=== PATIENT | female | born 1990 | race Caucasian/White ===

== ENCOUNTER 2020-12-17 08:36 | Emergency (ER) | payer MEDICAID, SELFPAY ==
[2020-12-17 08:51] VITALS: BP 119/87; PULSE 107; RESP 16; TEMP 36.8; O2SAT 96; BMI 32.3
[2020-12-17 09:00] VITALS: BP 129/90; PULSE 84; RESP 16
[2020-12-17 09:14] LABS: Microscopic, Urine URINE MICROSCOPIC (MICROSCOPIC)
[2020-12-17 09:19] LABS: Appearance,Urine CLOUDY (Clear); Blood, Urine 3+ (Negative); Color,Urine ORANGE (Yellow); Glucose,Urine (UA) 1+ (Negative); Ketones,Urine TRACE (Negative); Leukocyte Esterase,Urine 2+ (Negative); Nitrate,Urine POSITIVE (Negative); Protein,Urine 3+ (Negative); Specific Gravity, Urine >= 1.030 (1.005-1.030); Urine Pregnancy, HCG Qual. Negative (Negative); Urobilinogen,Urine >=8.0 EU/dl (0.2)
[2020-12-17 09:30] LABS: Bilirubin,Urine 2+ (Negative)
[2020-12-17 09:34] LABS: Bacteria,Urine 3+ /lpf
--- NOTE | 2020-12-17 09:58 | HMH.EDUROGF ---
ED Disposition Clinical Impression: Urinary tract infection Qualifiers: Urinary tract infection type: site unspecified Hematuria presence: without hematuria Qualified Code(s): N39.0 - Urinary tract infection, site not specified Vaginitis Qualifiers: Chronicity: acute Qualified Code(s): N76.0 - Acute vaginitis Disposition: Home, Self-Care Condition on Discharge: Good Instructions: DI for Urinary Tract Infection (UTI) Additional Instructions: use meds and see pcp for follow up Prescriptions: Fluconazole [Diflucan 150mg tab] 150 mg PO DAILY #5 tab Transmission Status: Pending to [employer] # levoFLOXacin [Levaquin 500mg tab] 500 mg PO DAILY #7 tab Transmission Status: Pending to [employer] # metroNIDAZOLE [metroNIDAZOLE 500mg Tablet] 500 mg PO TID #30 tab Transmission Status: Pending to [employer] # Phenazopyridine HCl [Pyridium 200mg Tablet] 200 pow PO TID #6 tab Transmission Status: Pending to [employer] # Referrals: Provider,Referral, [Primary Care Provider] - - Critical Care Critical Care Time: No Attestation: On 12/17/20, the high probability of a clinically significant, sudden or life threatening deterioration of the following system(s) required my full and direct attention, intervention and personal management. The time I documented below is in addition to time spent performing reported procedures but includes the following listed in this critical care notation. Medical Decision Making - Medical Records Medical records reviewed: Yes: I reviewed the patient's medical records. - Wm Inquiry Pt receiving controlled substance: No Vital Signs: 12/17/20 08:51 12/17/20 09:00 Temperature 98.2 F Temperature Source Oral Pulse Rate 84 Pulse Rate [Left Radial] 107 H Respiratory Rate 16 16 Blood Pressure 129/90 Blood Pressure [Right Arm] 119/87 Blood Pressure Mean 101 Blood Pressure Mean [Right Arm] 97 Blood Pressure Source [Right Arm] Automatic Cuff Blood Pressure Position [Right Arm] Sitting 02 Sat by Pulse Oximetry 96 Oxygen Delivery Method Room Air - Lab Data Lab results reviewed: Yes: I reviewed the patient's lab results. Lab Results 12/17/20 08:45: Urine Color [place], Urine Appearance Cloudy, Urine pH 5.0, Ur Specific [place] >= 1.030, Urine Protein 3+, Urine Glucose (UA) 1+, Urine Ketones Trace, Urine Blood 3+, Urine Nitrate Positive, Urine Bilirubin 2+ A, Urine Urobilinogen >=8.0, Ur Leukocyte Esterase 2+ A, Urine RBC 10-20, Urine WBC 5-10, Ur Squamous Epith Cells None, Urine Bacteria 3+ 12/17/20 08:45: Urine HCG, Qual Negative Orders (Tests/Meds): ORDERS Category Date Time Status Urine Culture Stat Micro 12/17/20 08:45 Received Medical Decision Narrative: pt with prob uti and element of vaginitis - will treat and have pt see pcp/manager gyn Female Urogenital HPI - General Chief complaint: Urogenital-Female Stated complaint: possible uti/yeast inf Time Seen by Provider: 12/17/20 09:59 Mode of Arrival: Ambulatory Source of Information: Patient, Medical Record Limitations: No Limitations Description of Symptoms (Recalled from ER Triage Doc. by RN): Pt to ed per pvt car. Pt states she woke up at 0300 this morning to use the restroom and started having vaginal pain, burning with urination and white discharge. Pt denies back pain or abd pain. Pt states she started taking AZO this morning to try and relieve symptoms with no relief. - History of Present Illness HPI Narrative: has sharp pain in vaginal area with creamy d/c - positive sex active but no known exposure - no fever or other c/o MD Complaint: dysuria, UTI Onset (ago): hour(s) Severity: moderate Urinary Symptoms: dysuria, frequency Sexual activity: yes : Unknown Associated symptoms: vaginal discharge - Related Data Previous Rx's Medication Instructions Recorded Fluconazole [Diflucan 150mg tab] 150
[2020-12-17 10:32] VITALS: BP 129/90; PULSE 107; RESP 18; TEMP 36.8; O2SAT 96
[2020-12-18 22:16] LABS: Neisseria gonorrhoeae, NAA Negative (Negative)
== END 2020-12-17 10:34 | disposition home or self-care (01) ==
PROVIDERS: Emergency Medicine; Emergency Provider Student in an Organized Health Care Education/Training Program
DX: N39.0 Urinary tract infection, site not specified (principal); N76.0 Acute vaginitis
CPT/HCPCS: 81001; 81025; 87086; 87088; 87186; 87491; 87591; 99282

== ENCOUNTER 2021-05-14 14:35 | Emergency (ER) | payer MEDICAID, SELFPAY ==
[2021-05-14 14:36] VITALS: BP 127/75; PULSE 89; RESP 14; TEMP 36.9; O2SAT 100; BMI 34.7
[2021-05-14 15:30] VITALS: BP 127/75; PULSE 89; RESP 14; TEMP 36.9; O2SAT 100; BMI 34.5
--- NOTE | 2021-05-14 15:57 | HMH.EDUTC ---
[facility] [place] Disposition Clinical Impression: Otitis media Qualifiers: Otitis media type: unspecified Laterality: right Qualified Code(s): H66.91 - Otitis media, unspecified, right ear Otitis externa Qualifiers: Otitis externa type: unspecified type Chronicity: unspecified Laterality: right Qualified Code(s): H60.91 - Unspecified otitis externa, right ear Disposition: Home, Self-Care Condition on Discharge: Good Instructions: Middle Ear Infection, DI for Otitis Externa, Otitis Externa, Ofloxacin Otic Additional Instructions: Use ear drops as prescribed Take oral medication as prescribed FOllow up with your Family Doctor if no improvement or any worsening of symptoms Return if needed Straight to ER if any life threatening symptoms Prescriptions: Ofloxacin [Floxin 0.3% OTIC Solution 5mL] 5 drops EAR-RIGHT BID 7 Days #5 ml Transmission Status: Pending to [employer] # Azithromycin [Z-Roe 250mg Tab] 250 mg PO DIRECTED #6 tab Transmission Status: Pending to [employer] # Referrals: Juliet Staley APRN [Primary Care Provider] - As needed Time of Disposition: 16:08 Medical Decision Making - Wm Inquiry Pt receiving controlled substance: No Wm was queried for this patient: No Vital Signs: 05/14/21 14:36 05/14/21 15:30 Temperature 98.5 F 98.5 F Temperature Source Oral Oral Pulse Rate [Left Radial] 89 89 Respiratory Rate 14 14 Blood Pressure [Left Arm] 127/75 127/75 Blood Pressure Mean [Left Arm] 92 92 Blood Pressure Source [Left Arm] Automatic Cuff Blood Pressure Position [Left Arm] Sitting 02 Sat by Pulse Oximetry 100 100 Oxygen Delivery Method Room Air Room Air [facility] [place] HPI - General Stated complaint: rt ear pain Time Seen by Provider: 05/14/21 15:57 Mode of Arrival: Ambulatory Source of Information: Patient Limitations: No Limitations Description of Symptoms (Recalled from Triage Doc. by RN): PATIENT C/O RIGHT EAR PAIN X 1 WEEK HEENT Symptoms (Recalled from RN notes): Yes Resp Symptoms (Recalled from RN notes): No Skin Symptoms (Recalled from RN notes): No MS Symptoms (Recalled from RN notes): No Functional Status (Recalled from RN notes): WNL - History of Present Illness Provider Complaint: Patient states that she started about a week ago with pain in her right ear States that she has tried several OTC medications but nothing has worked State that today her ear hurts and sore to the touch so she came in to get it checked out - Related Data Previous Rx's Medication Instructions Recorded Fluconazole [Diflucan 150mg tab] 150 mg PO DAILY #5 tab 12/17/20 Phenazopyridine HCl [Pyridium 200 pow PO TID #6 tab 12/17/20 200mg Tablet] levoFLOXacin [Levaquin 500mg 500 mg PO DAILY #7 tab 12/17/20 tab] metroNIDAZOLE [metroNIDAZOLE 500mg 500 mg PO TID #30 tab 12/17/20 Tablet] Azithromycin [Z-Roe 250mg Tab] 250 mg PO DIRECTED #6 tab 05/14/21 Ofloxacin [Floxin 0.3% OTIC 5 drops EAR-RIGHT BID 7 Days #5 ml 05/14/21 Solution 5mL] Allergies Allergy/AdvReac Type Severity Reaction Status Date / Time Penicillins Allergy Verified 12/17/20 09:00 - Worker's Comp Is this a Worker's Comp case?: No [facility] History - Hepatitis A Screen Drug use history?: No High risk sexual behaviors?: No History of sexually transmitted infection?: No Currently employed?: No Childcare worker?: No Do you have indoor plumbing?: Yes Do you have electricity?: Yes Attestation statement:: This patient has been screened for Hepatitis A risk factors. I have reviewed the patient's past medical history: Yes - Social History Smoking Status: Never smoker Alcohol Intake: never Occupational Status: other ROS Obtained: Yes All systems reviewed & no additional complaints, Yes Systems reviewed as appropriate & no additional complaints - Constitutional Constitutional: Reports system reviewed and no additional complaints, except as docu, Denies fever(s) - ENT Ears,
[2021-05-14 16:25] VITALS: BP 127/75; PULSE 89; RESP 14; TEMP 36.9; O2SAT 100
== END 2021-05-14 16:31 | disposition home or self-care (01) ==
PROVIDERS: Emergency Provider Nurse Practitioner; PCP Nurse Practitioner Psychiatric/Mental Health
DX: H66.91 Otitis media, unspecified, right ear (principal); H60.91 Unspecified otitis externa, right ear; Z79.51 Long term (current) use of inhaled steroids; Z79.899 Other long term (current) drug therapy; Z88.0 Allergy status to penicillin
CPT/HCPCS: 99213; G0463

== ENCOUNTER 2021-07-07 10:13 | Emergency (ER) | payer MEDICAID, SELFPAY ==
[2021-07-07 10:14] VITALS: BP 122/95; PULSE 98; RESP 18; TEMP 36.9; O2SAT 97; BMI 33.9
[2021-07-07 11:01] VITALS: BP 122/95; PULSE 98; RESP 18; TEMP 36.9; O2SAT 97; BMI 33.7
[2021-07-07 11:20] LABS: Apearance,Urine Cloudy (Clear); Bilirubin,Urine Negative (Negative); Blood, Urine 3+ (Negative); Color,Urine Straw (Yellow); Glucose,Urine (UA) Negative (Negative); Ketones,Urine Negative (Negative); PH,Urine 5.5 (5.0-8.5); Protein,Urine Negative (Negative); Specific Gravity, Urine < 1.005 (1.005-1.030); UTC Leukocyte Esterase,Urine 3+ (Negative); UTC Nitrate,Urine Negative (Negative); Urobilinogen,Urine 0.2 EU/dl (0.2)
--- NOTE | 2021-07-07 11:29 | HMH.EDUTC ---
[facility] [place] Disposition Clinical Impression: UTI (urinary tract infection) Qualifiers: Urinary tract infection type: site unspecified Hematuria presence: with hematuria Qualified Code(s): N39.0 - Urinary tract infection, site not specified Disposition: Home, Self-Care Condition on Discharge: Good Instructions: Urinary Tract Infection, DI for Urinary Tract Infection (UTI) Additional Instructions: Drink plenty of fluids. Take tylenol or ibuprofen for pain or fever. Take the medications as directed. Follow up with your regular doctor. GO TO THE ER FOR ANY WORSENING SYMPTOMS The pyridium will make your urine turn orange, this is an expected side effect. It will stain your clothes if it comes into contact with them. We will culture the urine. That will tell what bacteria is causing your infection and which antibiotics will treat it best. Sometimes the first antibiotic we prescribe turns out to not work against different bacteria. So, make sure you follow up within 3 days if you are not getting better. Prescriptions: Ondansetron [Zofran 4mg ODT] 4 mg PO Q8HP PRN #20 tab PRN Reason: Nausea Transmission Status: Received by [facility] #[id number] Ciprofloxacin HCl [Cipro 500mg Tab] 500 mg PO BID 7 Days #14 tab Transmission Status: Received by [facility] #[id number] Phenazopyridine HCl [Pyridium 200mg Tablet] 200 pow PO TID #6 tab Transmission Status: Received by [facility] #[id number] Referrals: Provider,Referral, MD [Primary Care Provider] - Time of Disposition: 11:50 Medical Decision Making - Medical Records Medical records reviewed: No: I reviewed the patient's medical records. - Wm Inquiry Pt receiving controlled substance: No Vital Signs: 07/07/21 10:14 07/07/21 11:01 07/07/21 11:51 Temperature 98.4 F 98.4 F 98.4 F Temperature Source Oral Oral Oral Pulse Rate 98 H Pulse Rate [Right Radial] 98 H 98 H Respiratory Rate 18 18 18 Blood Pressure 122/95 H Blood Pressure [Right Arm] 122/95 H 122/95 H Blood Pressure Mean [Right Arm] 104 104 Blood Pressure Source [Right Arm] Automatic Cuff Blood Pressure Position [Right Arm] Sitting 02 Sat by Pulse Oximetry 97 97 Oxygen Delivery Method Room Air - Lab Data Lab Results 07/07/21 11:06: C. trachomatis (EDA) Negative, N. gonorrhoeae (EDA) Negative 07/07/21 11:18: Urine Color Straw, Urine Appearance Cloudy, Urine pH 5.5, Ur Specific [place] < 1.005 L, Urine Protein Negative, Urine Glucose (UA) Negative, Urine Ketones Negative, Urine Blood 3+, Urine Nitrate Negative, Urine Bilirubin Negative, Urine Urobilinogen 0.2, Ur Leukocyte Esterase 3+ A [facility] [place] HPI - General Stated complaint: lower pain in female area Time Seen by Provider: 07/07/21 11:29 Mode of Arrival: Ambulatory Source of Information: Patient Limitations: No Limitations Description of Symptoms (Recalled from Triage Doc. by RN): pt c/o lower quad abd pain. pt states she is having burning with urination and incontinence. pt has a hx of kidney stones. HEENT Symptoms (Recalled from RN notes): No Resp Symptoms (Recalled from RN notes): No Skin Symptoms (Recalled from RN notes): No MS Symptoms (Recalled from RN notes): No Functional Status (Recalled from RN notes): wnl - Related Data Previous Rx's Medication Instructions Recorded Fluconazole [Diflucan 150mg tab] 150 mg PO DAILY #5 tab 12/17/20 Phenazopyridine HCl [Pyridium 200 pow PO TID #6 tab 12/17/20 200mg Tablet] levoFLOXacin [Levaquin 500mg 500 mg PO DAILY #7 tab 12/17/20 tab] metroNIDAZOLE [metroNIDAZOLE 500mg 500 mg PO TID #30 tab 12/17/20 Tablet] Azithromycin [Z-Roe 250mg Tab] 250 mg PO DIRECTED #6 tab 05/14/21 Ofloxacin [Floxin 0.3% OTIC 5 drops EAR-RIGHT BID 7 Days #5 ml 05/14/21 Solution 5mL] Ciprofloxacin HCl [Cipro 500mg 500 mg PO BID 7 Days #14 tab 07/07/21 Tab] Ondansetron [Zofran 4mg ODT] 4 mg PO Q8HP PRN #20 tab 07/07/21 Phenazop
[2021-07-07 11:51] VITALS: BP 122/95; PULSE 98; RESP 18; TEMP 36.9
[2021-07-11 08:35] LABS: Neisseria gonorrhoeae, NAA Negative (Negative)
== END 2021-07-07 12:48 | disposition home or self-care (01) ==
PROVIDERS: Emergency Provider Nurse Practitioner Family
DX: N39.0 Urinary tract infection, site not specified (principal); R31.9 Hematuria, unspecified; R32 Unspecified urinary incontinence; Z87.442 Personal history of urinary calculi; Z79.51 Long term (current) use of inhaled steroids; Z88.0 Allergy status to penicillin
CPT/HCPCS: 81003; 87086; 87088; 87186; 87491; 87591; 99213; G0463

== ENCOUNTER 2021-08-26 09:29 | Emergency (ER) | payer MEDICAID, SELFPAY ==
[2021-08-26 09:30] VITALS: BP 125/79; PULSE 91; RESP 19; TEMP 37.1; O2SAT 98; BMI 34.3
[2021-08-26 09:47] LABS: Apearance,Urine Clear (Clear); Bilirubin,Urine Negative (Negative); Blood, Urine 2+ (Negative); Color,Urine Yellow (Yellow); Glucose,Urine (UA) Negative (Negative); Ketones,Urine Negative (Negative); PH,Urine 5.5 (5.0-8.5); Protein,Urine 1+ (Negative); UTC Leukocyte Esterase,Urine Trace (Negative); UTC Nitrate,Urine Negative (Negative); Urobilinogen,Urine 0.2 EU/dl (0.2)
--- NOTE | 2021-08-26 09:54 | HMH.EDUTC ---
[facility] [place] Clinical Impression: Urinary tract infection Qualifiers: Urinary tract infection type: acute cystitis Hematuria presence: with hematuria Qualified Code(s): N30.01 - Acute cystitis with hematuria Disposition: Home, Self-Care Condition on Discharge: Good Instructions: Urinary Tract Infection, DI for Urinary Tract Infection (UTI) Additional Instructions: Increase fluids, water and not soda or tea. Can drink cranberry juice or cranberry extract. White front to back Wear cotton underwear Empty bladder after intercourse Start antibiotics immediately and make sure you take the full course although you may start to see improvement over the next 48 hours. You can eat yogurt or take probiotics to decrease diarrhea or yeast infection caused by the antibiotic Be sure to follow-up anytime for new or worsening symptoms in 48 hours for wound urine culture results be sure to let you PCP no recent urine for culture so they can request records and ensure that you have appropriate antibiotic if you are not getting better or getting worse. If symptoms worsen or do not improve return or be seen in the ER. Follow-up with primary care this week. Prescriptions: Sulfamethoxazole/Trimethoprim [Bactrim DS tablet] 1 each PO BID 10 Days #20 tab Transmission Status: Pending to [facility] #[id number] Referrals: Juliet Staley APRN [Primary Care Provider] - Time of Disposition: 09:59 Medical Decision Making - Wm Inquiry Pt receiving controlled substance: No Vital Signs: 08/26/21 09:30 Temperature 98.7 F Temperature Source Oral Pulse Rate [Right Brachial] 91 H Respiratory Rate 19 Blood Pressure [Right Arm] 125/79 Blood Pressure Mean [Right Arm] 94 Blood Pressure Source [Right Arm] Automatic Cuff Blood Pressure Position [Right Arm] Sitting 02 Sat by Pulse Oximetry 98 Oxygen Delivery Method Room Air - Lab Data Lab Results 08/26/21 09:45: Urine Color Yellow, Urine Appearance Clear, Urine pH 5.5, Ur Specific [place] 1.030, Urine Protein 1+, Urine Glucose (UA) Negative, Urine Ketones Negative, Urine Blood 2+, Urine Nitrate Negative, Urine Bilirubin Negative, Urine Urobilinogen 0.2, Ur Leukocyte Esterase Trace Orders (Tests/Meds): ORDERS Category Date Time Status Urine Culture Stat Micro 08/26/21 09:45 Received [facility] [place] HPI - General Chief complaint: Urgent [facility] Stated complaint: possible uti Time Seen by Provider: 08/26/21 09:55 Mode of Arrival: Ambulatory Source of Information: Patient Limitations: No Limitations Description of Symptoms (Recalled from Triage Doc. by RN): PATIENT C/O URINARY URGENCY THAT STARTED THIS MORNING HEENT Symptoms (Recalled from RN notes): No Resp Symptoms (Recalled from RN notes): No Skin Symptoms (Recalled from RN notes): No MS Symptoms (Recalled from RN notes): No Functional Status (Recalled from RN notes): WNL - History of Present Illness Provider Complaint: 31 yr old female presnets for pain with voiding,pelvic pressure,urgency,freq and burning. - Related Data Home Medications Medication Instructions Recorded Confirmed lamoTRIgine [Lamotrigine] 100 mg PO DAILY 08/26/21 08/26/21 Previous Rx's Medication Instructions Recorded Sulfamethoxazole/Trimethoprim 1 each PO BID 10 Days #20 tab 08/26/21 [Bactrim DS tablet] Allergies Allergy/AdvReac Type Severity Reaction Status Date / Time Penicillins Allergy Verified 12/17/20 09:00 - Worker's Comp Is this a Worker's Comp case?: No [facility] History - Hepatitis A Screen Attestation statement:: This patient has been screened for Hepatitis A risk factors. I have reviewed the patient's past medical history: Yes - Social History Smoking Status: Never smoker Alcohol Intake: never Occupational Status: other ROS Obtained: Yes Systems reviewed as appropriate & no additional complaints - Constitutional Constitutional: Reports system reviewed and no additional complaints, except as
[2021-08-26 10:01] VITALS: BP 125/79; PULSE 91; RESP 19; TEMP 37.1; O2SAT 98
== END 2021-08-26 10:03 | disposition home or self-care (01) ==
PROVIDERS: Emergency Provider Nurse Practitioner Family; PCP Nurse Practitioner Psychiatric/Mental Health
DX: N30.01 Acute cystitis with hematuria (principal); Z79.52 Long term (current) use of systemic steroids; Z79.899 Other long term (current) drug therapy; Z88.0 Allergy status to penicillin; Z91.030 Bee allergy status
CPT/HCPCS: 81003; 87086; 99213; G0463

== ENCOUNTER → 2021-09-09 09:21 | Outpatient (CLI) | payer MEDICAID, SELFPAY ==
--- NOTE | 2021-09-09 09:21 | US_ITS ---
PROCEDURE INFORMATION: Exam: US Right Breast, Complete US Left Breast, Complete Exam date and time: 09/09/2021 9:46 AM Age: 31 years old Clinical indication: Breast pain; Bilateral TECHNIQUE: Imaging protocol: Complete ultrasound of all four quadrants of the Right breast and the retroareolar regions, including ultrasound of the axilla when performed. Complete ultrasound of all four quadrants of the Left breast and the retroareolar regions, including ultrasound of the axilla when performed. COMPARISON: No relevant prior studies available. FINDINGS: Breast: Sonographic images of both breasts including the retroareolar regions, all 4 quadrants and the axilla do not demonstrate any solid or cystic masses. No architectural distortion or acoustical shadowing. No skin thickening or axillary adenopathy. IMPRESSION: No sonographic evidence of malignancy. Annual bilateral mammographic screening is recommended to commence at the age of 40 unless otherwise clinically indicated. ASSESSMENT: BI-RADS Category 1: Negative
== END ==
PROVIDERS: PCP Nurse Practitioner Psychiatric/Mental Health; Visit Provider Obstetrics & Gynecology
DX: N64.4 Mastodynia (principal)
CPT/HCPCS: 76641

== ENCOUNTER 2021-09-18 08:40 | Emergency (ER) | payer MEDICAID, SELFPAY ==
[2021-09-18 08:50] VITALS: BP 102/67; PULSE 84; RESP 19; TEMP 36.9; O2SAT 98; BMI 32.3
--- NOTE | 2021-09-18 09:05 | HMH.EDUTC ---
[facility] Disposition Clinical Impression: Left maxillary sinusitis Left otitis externa Qualifiers: Otitis externa type: swimmer's ear Chronicity: acute Qualified Code(s): H60.332 - Swimmer's ear, left ear Bilateral otitis media Qualifiers: Otitis media type: suppurative Chronicity: acute Recurrence: non-recurrent Spontaneous tympanic membrane rupture: without spontaneous rupture Qualified Code(s): H66.003 - Acute suppurative otitis media without spontaneous rupture of ear drum, bilateral Disposition: Home, Self-Care Condition on Discharge: Good Instructions: DI for Sinusitis Additional Instructions: Take all medications as prescribed until gone Follow up with [facility] next week to recheck Prescriptions: Ciprofloxacin HCl/Dexameth [Cipro 0.3%-Dex 0.1% Otic Susp 7.5mL] 4 % * BID #7.5 ml Transmission Status: Pending to [employer] # Cefdinir [Omnicef 300mg Capsule] 300 mg PO BID #20 cap Transmission Status: Pending to [employer] # predniSONE [Prednisone 20mg Tab] 20 mg PO BID 5 Days #10 tab Transmission Status: Pending to [employer] # Referrals: Juliet Staley APRN [Primary Care Provider] - Time of Disposition: 09:11 Medical Decision Making - Wm Inquiry Pt receiving controlled substance: No [facility] HPI - General Stated complaint: bilateral ear pain Time Seen by Provider: 09/18/21 09:05 - History of Present Illness Provider Complaint: Bilateral ear pain since last night. No fever. Has had congestion X 2-3 days. Face is sore. Left ear is draining, cannot hear out of it. Denies sore throat. No cough. No vomiting or diarrhea. Onset (ago): day(s) (2) Location: face Radiation: non-radiation Severity scale (1-10): 7 Quality: stabbing Consistency: constant Relieving factors: none Exacerbating factors: none Associated symptoms: denies other symptoms Treatments prior to arrival: none - Related Data Home Medications Medication Instructions Recorded Confirmed lamoTRIgine [Lamotrigine] 100 mg PO DAILY 08/26/21 09/02/21 Previous Rx's Medication Instructions Recorded doxycycline hyclate 100 mg tablet 100 mg PO BID #28 tab 09/06/21 levofloxacin 500 mg tablet 500 mg PO DAILY #5 tab 09/06/21 Cefdinir [Omnicef 300mg Capsule] 300 mg PO BID #20 cap 09/18/21 Ciprofloxacin HCl/Dexameth [Cipro 4 % * BID #7.5 ml 09/18/21 0.3%-Dex 0.1% Otic Susp 7.5mL] predniSONE [Prednisone 20mg 20 mg PO BID 5 Days #10 tab 09/18/21 Tab] Allergies Allergy/AdvReac Type Severity Reaction Status Date / Time bee venom protein (honey bee) Allergy Severe Anaphylaxis Verified 09/02/21 14:27 Penicillins Allergy Verified 09/02/21 13:56 [facility] History - Hepatitis A Screen Attestation statement:: This patient has been screened for Hepatitis A risk factors. I have reviewed the patient's past medical history: Yes Medical History: Reports:: Asthma, Seizures Amputation: No Fractures: No - Social History Smoking Status: Never smoker Alcohol Intake: never Alcohol Intake Frequency:: other Occupational Status: other Family Hx:: No significant family history, Other Comment: mother () had seizures ROS Obtained: Yes All systems reviewed & no additional complaints - Constitutional Constitutional: Denies fever(s) - ENT Ears, Nose, Mouth, and Throat: Denies dental pain, Reports otalgia, Reports facial pain, Reports hearing loss, Reports nasal congestion Physical Exam - General General appearance: alert, in no apparent distress - Head Head exam: normocephalic - Eye Eye exam: Present: PERRL - ENT ENT exam: Present: normal oropharynx - Expanded ENT Exam TM/Canal exam: Left TM: canal discharge (cannot visualize TM), canal tenderness, Right TM: erythema Nose exam: Present: sinus tenderness (left maxillary) Throat exam: Present: normal inspection - Neck Neck exam: Present: normal inspection. Absent: lymphadenopathy - Chest Chest inspec
[2021-09-18 09:14] VITALS: BP 102/67; PULSE 84; RESP 19; TEMP 36.9; O2SAT 98
== END 2021-09-18 09:17 | disposition home or self-care (01) ==
PROVIDERS: Emergency Provider Physician Assistant; PCP Nurse Practitioner Psychiatric/Mental Health
DX: J32.0 Chronic maxillary sinusitis (principal); H60.322 Hemorrhagic otitis externa, left ear; H66.003 Acute suppurative otitis media without spontaneous rupture of ear drum, bilateral; H92.03 Otalgia, bilateral; R09.81 Nasal congestion; G50.1 Atypical facial pain; H92.12 Otorrhea, left ear; H91.90 Unspecified hearing loss, unspecified ear; J45.909 Unspecified asthma, uncomplicated; R56.9 Unspecified convulsions
CPT/HCPCS: 99212; G0463

== ENCOUNTER 2021-11-01 09:49 | Emergency (ER) | payer MEDICAID, SELFPAY ==
[2021-11-01 10:20] VITALS: BP 122/83; PULSE 87; RESP 18; TEMP 36.3; O2SAT 95; BMI 31.6
--- NOTE | 2021-11-01 10:38 | HMH.EDUTC ---
[facility] [place] Clinical Impression: Menorrhagia Qualifiers: Menorrhagia type: with irregular cycle Qualified Code(s): N92.1 - Excessive and frequent menstruation with irregular cycle Disposition: Home, Self-Care Condition on Discharge: Good Instructions: DI for Menorrhagia Additional Instructions: Drink plenty of fluids. Take tylenol or ibuprofen for pain or fever. Follow up with shank taper. GO TO THE ER FOR ANY WORSENING SYMPTOMS Prescriptions: Fluconazole [Diflucan 150mg tab] 150 mg PO ONCE #1 tab Transmission Status: Received by [facility] #[id number] Referrals: Juliet Staley APRN [Primary Care Provider] - Danish Booth MD [Staff Physician] - Time of Disposition: 11:02 Medical Decision Making - Medical Records Medical records reviewed: No: I reviewed the patient's medical records. - Wm Inquiry Pt receiving controlled substance: No Vital Signs: 11/01/21 10:20 11/01/21 11:07 Temperature 97.4 F L 97.4 F L Temperature Source Oral Pulse Rate 87 Pulse Rate [Right Brachial] 87 Respiratory Rate 18 18 Blood Pressure 122/83 Blood Pressure [Right Arm] 122/83 Blood Pressure Mean [Right Arm] 96 Blood Pressure Source [Right Arm] Automatic Cuff Blood Pressure Position [Right Arm] Sitting 02 Sat by Pulse Oximetry 95 Oxygen Delivery Method Room Air - Lab Data Lab Results 11/01/21 11:27: [facility] Negative [facility] [place] - General Stated complaint: can't wear tampon/pad, pain Time Seen by Provider: 11/01/21 10:38 - History of Present Illness Provider Complaint: She is here with c/o having a very heavy period for the past 5 days. She is worried about going to work because she is going thru several pad in a day. - Related Data Home Medications Medication Instructions Recorded Confirmed lamoTRIgine [Lamotrigine] 100 mg PO DAILY 08/26/21 09/02/21 Previous Rx's Medication Instructions Recorded doxycycline hyclate 100 mg tablet 100 mg PO BID #28 tab 09/06/21 levofloxacin 500 mg tablet 500 mg PO DAILY #5 tab 09/06/21 Cefdinir [Omnicef 300mg Capsule] 300 mg PO BID #20 cap 09/18/21 Ciprofloxacin HCl/Dexameth [Cipro 4 % * BID #7.5 ml 09/18/21 0.3%-Dex 0.1% Otic Susp 7.5mL] predniSONE [Prednisone 20mg 20 mg PO BID 5 Days #10 tab 09/18/21 Tab] Fluconazole [Diflucan 150mg tab] 150 mg PO ONCE #1 tab 11/01/21 Allergies Allergy/AdvReac Type Severity Reaction Status Date / Time bee venom protein (honey bee) Allergy Severe Anaphylaxis Verified 09/02/21 14:27 Penicillins Allergy Verified 09/02/21 13:56 [facility] History - Hepatitis A Screen Attestation statement:: This patient has been screened for Hepatitis A risk factors. I have reviewed the patient's past medical history: Yes Medical History: Reports:: Asthma, Seizures Amputation: No Fractures: No - Social History Smoking Status: Never smoker Alcohol Intake: never Alcohol Intake Frequency:: other Occupational Status: other Family Hx:: No significant family history, Other Comment: mother () had seizures ROS Obtained: Yes All systems reviewed & no additional complaints - Constitutional Constitutional: Denies chills, Denies fever(s) - Eyes Eyes: Denies eye discharge - ENT Ears, Nose, Mouth, and Throat: Denies sore throat - Cardiovascular Cardiovascular: Denies chest pain - Respiratory Respiratory: Denies chest congestion, Denies cough Physical Exam - General General appearance: alert, in no apparent distress - Head Head exam: atraumatic, normocephalic, normal inspection - Eye Eye exam: Present: normal appearance, PERRL, EOMI - ENT ENT exam: Present: normal exam, normal oropharynx, mucous membranes moist, TM's normal bilaterally, normal external ear exam - Neck Neck exam: Present: normal inspection, full ROM, trachea midline. Absent: meningismus, lymphadenopathy - Chest Chest inspection: Present: normal inspection, symmetric chest
[2021-11-01 11:07] VITALS: BP 122/83; PULSE 87; RESP 18; TEMP 36.3; O2SAT 95
[2021-11-01 11:27] LABS: UTC Pregnancy Test, Urine Negative (Negative)
== END 2021-11-01 11:10 | disposition home or self-care (01) ==
PROVIDERS: Emergency Provider Nurse Practitioner Family; PCP Nurse Practitioner Psychiatric/Mental Health
DX: N92.0 Excessive and frequent menstruation with regular cycle (principal)
CPT/HCPCS: 81025; 99212; G0463

== ENCOUNTER 2022-07-02 12:11 | Emergency (ER) | payer MEDICAID, SELFPAY ==
[2022-07-02 12:20] VITALS: BP 129/86; PULSE 71; RESP 20; TEMP 36.9; O2SAT 98; BMI 29.2
--- NOTE | 2022-07-02 12:34 | EXP.UTC ---
Discharge Plan Disposition Patient Disposition: Home, Self-Care Condition: Good Prescriptions Prescriptions: New fluconazole [Diflucan] 150 mg tablet 150 mg PO ONCE Qty: 1 2RF nystatin 100,000 unit/gram cream 1 applic topical BID 14 Days Qty: 30 0RF Referrals Follow up/Referrals: Provider,Referral, MD [Primary Care Provider] - See instructions Activity Restrictions/Add. Instructions Additional Instructions/Restrictions: Drink plenty of fluids. Take tylenol or ibuprofen for pain or fever. Take the medications as directed. Follow up with your regular doctor. GO TO THE ER FOR ANY WORSENING SYMPTOMS Eat yogurt frequently while you have these symptoms. Clinical Impressions Clinical Impression: Vaginal yeast infection Discharge ED Provider: Sreedhar Washington [facility] General Stated complaint: possible yeast infection Time Seen by Provider: 07/02/22 12:31 History of Present Illness Provider Complaint: She states that for the past 2 days she has had vaginal yeast infection symptoms. Related Data Previous Rx's Medication Instructions Recorded fluconazole 150 mg tablet 150 mg PO ONCE #1 tab 07/02/22 (Diflucan) nystatin 100,000 unit/gram topical 1 applic topical BID 14 days #30 07/02/22 cream grams Allergies Allergy/AdvReac Type Severity Reaction Status Date / Time bee venom protein (honey bee) Allergy Severe Anaphylaxis Verified 07/02/22 12:40 Penicillins Allergy Verified 07/02/22 12:40 [facility] Disclaimer: The information contained in this section may have been updated after the patient was seen, as this information can be updated by other users. Social History Smoking Status: Never smoker alcohol intake: never current occupational status: other Travel in the last 8 weeks: None ROS Obtained: Yes All systems reviewed & no additional complaints except as documented Constitutional Constitutional: Denies chills and Denies fever(s) Eyes Eyes: Denies eye discharge ENT Ears, Nose, Mouth, and Throat: Denies dizziness, Denies otalgia and Denies sore throat Cardiovascular Cardiovascular: Denies chest pain Respiratory Respiratory: Denies shortness of breath, Denies chest congestion, Denies cough, Denies stridor and Denies wheezing Gastrointestinal Gastrointestingal: Denies nausea or vomiting Genitourinary Female Genitourinary: Reports as per HPI Musculoskeletal Musculoskeletal: Reports system reviewed and no additional complaints, except as documented and Denies arthralgias Integumentary/Breasts Skin/Breast: Denies rash Neurologic Neurologic: Denies dizziness and Denies paresthesias Allergic/Immunologic Allergic/Immunologic: Denies wheezing Physical Exam General General appearance: alert and in no apparent distress Head Head exam: atraumatic, normocephalic and normal inspection Eye Eye exam: Present normal appearance, PERRL and EOMI ENT ENT exam: Present normal exam, normal oropharynx, mucous membranes moist, TM's normal bilaterally and normal external ear exam Neck Neck exam: Present normal inspection, full ROM and trachea midline; Absent meningismus or lymphadenopathy Chest Chest inspection: Present normal inspection and symmetric chest wall rise; Absent tenderness Respiratory Respiratory exam: Present normal lung sounds bilaterally; Absent respiratory distress Cardiovascular Cardiovascular exam: Present regular rate and normal rhythm; Absent JVD Abdominal Exam Abdominal exam: Present soft and normal bowel sounds; Absent distention, tenderness or guarding Extremities Exam Extremities exam: Present normal inspection, full ROM and normal capillary refill; Absent calf tenderness Back Exam Back exam: Present normal inspection; Absent tenderness, CVA tenderness (R) or CVA tenderness (L) Neurological Exam Neurological exam: Present alert and oriented X3 Psychiatric Psychiatric exam: Present normal affect and normal m
[2022-07-02 12:46] LABS: Apearance,Urine Clear (Clear); Color,Urine Yellow (Yellow); Glucose,Urine (UA) Negative (Negative); Protein,Urine Trace (Negative); Specific Gravity, Urine 1.025 (1.005-1.030)
[2022-07-02 12:47] LABS: Bilirubin,Urine Negative (Negative); Blood, Urine 1+ (Negative); Ketones,Urine Negative (Negative); UTC Leukocyte Esterase,Urine 1+ (Negative); UTC Nitrate,Urine Negative (Negative); Urobilinogen,Urine 0.2 EU/dl (0.2)
[2022-07-02 13:28] VITALS: BP 129/86; PULSE 71; RESP 20; TEMP 36.9; O2SAT 98
== END 2022-07-02 13:25 | disposition home or self-care (01) ==
PROVIDERS: Emergency Provider Nurse Practitioner Family
DX: B37.31 Acute candidiasis of vulva and vagina (principal)
CPT/HCPCS: 81003; 87086; 99212; 99214; G0463

== ENCOUNTER 2022-08-26 16:50 | Emergency (ER) | payer MEDICAID, SELFPAY ==
--- NOTE | 2022-08-26 17:17 | HMH.EDGENADL ---
Discharge Plan Disposition Patient Disposition: Home, Self-Care Prescriptions Prescriptions: No Action fluconazole [Diflucan] 150 mg tablet 150 mg PO ONCE Qty: 1 2RF nystatin 100,000 unit/gram cream 1 applic topical BID 14 Days Qty: 30 0RF Referrals Follow up/Referrals: Juliet Staley APRN [Primary Care Provider] - See instructions Clinical Impressions Clinical Impression: Avulsed toenail Discharge ED Provider: Keo Talbot General Adult HPI General Chief complaint: PAIN Stated complaint: AO 05/29, right toenail pain Time Seen by Provider: 08/26/22 17:17 History of Present Illness HPI narrative: Patient presents with right great toenail pain. She states that several weeks ago she dropped a deluca on her toe and she has had a toenail that is been growing underneath the injured toenail for some time and today the toenail began to become avulsed and she stated she had some significant pain and wanted to be taken off by professional. No other injuries today. Related Data Previous Rx's Medication Instructions Recorded fluconazole 150 mg tablet 150 mg PO ONCE #1 tab 07/02/22 (Diflucan) nystatin 100,000 unit/gram topical 1 applic topical BID 14 days #30 07/02/22 cream grams Allergies Allergy/AdvReac Type Severity Reaction Status Date / Time bee venom protein (honey bee) Allergy Severe Anaphylaxis Verified 07/02/22 12:40 Penicillins Allergy Verified 07/02/22 12:40 [facility] Disclaimer: The information contained in this section may have been updated after the patient was seen, as this information can be updated by other users. Social History Smoking Status: Current every day smoker alcohol intake: never current occupational status: other Travel in the last 8 weeks: None ROS Obtained: Yes All systems reviewed & no additional complaints except as documented Physical Exam General General appearance: alert Respiratory Respiratory exam: Present normal lung sounds bilaterally; Absent respiratory distress Cardiovascular Cardiovascular exam: Present regular rate; Absent tachycardia Extremities Exam Extremities exam: Present other (Right great toe toenail slightly avulsed attached on the lateral aspect with a healthy toenail growing underneath) Neurological Exam Neurological exam: Present alert and oriented X3 Medical Decision Making Wm Inquiry Pt receiving controlled substance: No Vital Signs: 08/26/22 17:18 08/26/22 17:30 Temperature 98.4 F Temperature Source Oral Pulse Rate 85 Pulse Rate [Right] 85 Respiratory Rate 16 18 Blood Pressure 107/70 L Blood Pressure [Right Arm] 112/75 Blood Pressure Mean 84 Blood Pressure Mean [Right Arm] 87 02 Sat by Pulse Oximetry 99 98 Oxygen Delivery Method Room Air Medical Decision Narrative: See procedure note. Evulsed toenail was removed follow-up precautions and return precautions discussed. Procedures Miscellaneous Procedure Procedure Performed: Digital block of her great toe done with 1% lidocaine with 5 cc good block was obtained and patient was able to have the diseased portion of the avulsed toenail removed and I had to cut off the more lateral aspect that was still intact. Patient tolerated this well was discharged in stable condition Critical Care Time Critical Care Time Critical Care Time: No Attestation: On 08/26/22, the high probability of a clinically significant, sudden or life threatening deterioration of the following system(s) required my full and direct attention, intervention and personal management. The time I documented below is in addition to time spent performing reported procedures but includes the following listed in this critical care notation.
[2022-08-26 17:18] VITALS: BP 112/75; PULSE 85; RESP 16; TEMP 36.9; O2SAT 99; BMI 27.4
[2022-08-26 17:30] VITALS: BP 107/70; PULSE 85; RESP 18; O2SAT 98
[2022-08-26 17:59] VITALS: BP 107/70; PULSE 94; RESP 16; TEMP 36.7; O2SAT 99
== END 2022-08-26 18:02 | disposition home or self-care (01) ==
PROVIDERS: Emergency Provider Student in an Organized Health Care Education/Training Program; PCP Nurse Practitioner Psychiatric/Mental Health
DX: S91.201A Unspecified open wound of right great toe with damage to nail, initial encounter (principal); W20.0XXA Struck by falling object in cave-in, initial encounter; F17.200 Nicotine dependence, unspecified, uncomplicated
CPT/HCPCS: 11730; 99282; 99283

== ENCOUNTER 2022-10-29 05:18 | Emergency (ER) | payer MEDICAID, SELFPAY ==
[2022-10-29 05:20] VITALS: BP 102/84; PULSE 95; RESP 18; TEMP 36.8; O2SAT 96; BMI 28.2
--- NOTE | 2022-10-29 05:40 | PC.NURSE ---
Dr. Duckworth at [facility]
--- NOTE | 2022-10-29 05:41 | PC.NURSE ---
had RAD page u/s for torsion rule out
[2022-10-29 05:42] LABS: Appearance,Urine TURBID (Clear); Bilirubin,Urine Negative (Negative); Blood, Urine 3+ (Negative); Color,Urine YELLOW (Yellow); Glucose,Urine (UA) Negative (Negative); Ketones,Urine Negative (Negative); Leukocyte Esterase,Urine 2+ (Negative); Nitrate,Urine Negative (Negative); Protein,Urine 2+ (Negative); Specific Gravity, Urine >= 1.030 (1.005-1.030); Urobilinogen,Urine 0.2 EU/dl (0.2)
[2022-10-29 05:43] LABS: Microscopic, Urine URINE MICROSCOPIC (MICROSCOPIC)
--- NOTE | 2022-10-29 05:43 | US_ITS ---
PROCEDURE INFORMATION: Exam: US Duplex Artery or Vein of the Abdominal and/or Reproductive Organs, Limited Exam date and time: 10/29/2022 6:36 AM Age: 32 years old Clinical indication: Pelvic pain; Additional info: R/O torsion TECHNIQUE: Imaging protocol: Real-time duplex ultrasound scan of the arterial or venous flow of the abdomen and/or reproductive organs, with color Doppler flow and spectral waveform analysis with image documentation. Exam focused on the region of clinical interest. Duplex exam was performed to evaluate for vascular conditions. COMPARISON: No relevant prior studies available. FINDINGS: Ovaries: Peak systolic velocity in the left ovary 8 cm/s. Peak systolic velocity in the right ovary 12 cm/s. No evidence of ovarian torsion.. IMPRESSION: No evidence of ovarian torsion.. PROCEDURE INFORMATION: Exam: US Pelvis, Transvaginal Exam date and time: 10/29/2022 6:36 AM Age: 32 years old Clinical indication: Pelvic pain; Additional info: R/O torsion LABS AND CLINICAL REPORTS: Last menstrual period start date: 10/13/2022 TECHNIQUE: Imaging protocol: Real-time transvaginal pelvic ultrasound with image documentation. Transvaginal imaging was used for better evaluation of the endometrium, adnexa, and/or cervix. COMPARISON: No relevant prior studies available. FINDINGS: Uterus: Uterus measures 6.3 cm x 4.1 cm x 3.1 cm. Endometrium 7.5 mm Right ovary/adnexa: Right ovary measures 3.4 cm x 2.1 cm x 1.6 cm. Right ovarian volume is 6.1 mL. . Peak systolic velocity in the right ovary 12 cm/s. Left ovary/adnexa: Left ovary measures 4.1 cm x 2 cm x 1.9 cm. Left ovarian volume is 7.9 mL. Peak systolic velocity in the left ovary 8 cm/s 9 mm follicle left ovary Intraperitoneal space: Free fluid in the posterior cul-de-sac
[2022-10-29 05:45] LABS: Urine Pregnancy, HCG Qual. Negative (Negative)
--- NOTE | 2022-10-29 05:49 | PC.NURSE ---
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 Advised he would try again momentarily.
[2022-10-29 05:51] LABS: Bacteria,Urine 3+ /lpf; WBC,Urine TNTC #/hpf (0-3)
[2022-10-29 06:14] LABS: Basophils # 0.1 K/mm3 (0-0.2); Basophils % 0.6 % (0.1-2.0); Eosinophils # 0.5 K/mm3 (0.0-0.4); Eosinophils % 4.7 % (0.1-12.0); Hemoglobin 14.8 g/dL (12.2-16.2); Lymphocytes # 2.4 K/mm3 (0.7-4.5); Lymphocytes % 25.6 % (10-50); Mean Corpuscular HGB Conc 32.9 g/dL (31.8-35.4); Mean Corpuscular Hemoglobin 27.9 pg (27.0-31.2); Mean Platelet Volume 8.7 fl (7.4-10.4); Monocytes # 0.4 K/mm3 (0.1-1.0); Monocytes % 4.6 % (1.7-9.3); Neutrophils # 6.1 K/mm3 (1.8-7.8); Neutrophils % 64.5 % (37.0-80.0); Platelet Count 282 K/mm3 (142-424); Red Blood Count 5.29 M/mm3 (4.20-5.40); Red Cell Distribution Width 13.6 % (11.5-17.5); White Blood Count 9.4 K/mm3 (4.8-10.8)
--- NOTE | 2022-10-29 06:17 | HMH.EDGENADL ---
Discharge Plan Disposition Patient Disposition: Still a Patient Condition: Good Prescriptions Prescriptions: New cefdinir 300 mg capsule 300 mg PO BID 10 Days Qty: 20 0RF ketorolac 10 mg tablet 10 mg PO Q8H PRN (Reason: pain) Qty: 20 0RF ondansetron 4 mg tablet,disintegrating 4 mg PO Q8H PRN (Reason: nausea and vomiting) 4 Days Qty: 12 0RF No Action lamotrigine 100 mg tablet 100 mg PO BID Patient Comments: TAKE 1 TABLET BY MOUTH IN THE MORNING AND 1 TABLET AT BEDTIME Referrals Follow up/Referrals: Juliet Staley APRN [Primary Care Provider] - See instructions Activity Restrictions/Add. Instructions Additional Instructions/Restrictions: You were evaluated in the emergency department today and diagnosed with a urinary tract infection. 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 Take Toradol at home as needed for pain. Take Zofran as needed for nausea and vomiting. Do not take ibuprofen, Aleve, or other NSAIDs while taking Toradol. In addition to these medications, you may take Tylenol every 4-6 hours as needed for pain. Orally hydrate is much as possible. Follow-up with your primary care provider over the next 3 days for reassessment. Return to the emergency department for any new or worsening symptoms, such as significant worsening in pain, persistent fevers, intractable vomiting, or other concerns. Clinical Impressions Clinical Impression: Pyelonephritis Instructions Patient Instructions: DI for Urinary Tract Infection (UTI) Discharge ED Provider: Alice Gomez General Adult HPI <Tremaine Duckworth MD - Last Filed: 10/29/22 07:05> General Chief complaint: Urogenital-Female Stated complaint: abdominal pain, burning Time Seen by Provider: 10/29/22 05:22 Mode of Arrival: Ambulatory Limitations: No Limitations Description of Symptoms (Recalled from ER Triage Doc. by RN): c/o vaginal pain and dysuria, frequent and urgent urination History of Present Illness HPI narrative: Is a 32-year-old female with no relevant medical history presenting with abdominal and lower pelvic pain. Patient states about 30 minutes prior to arrival, she was at home when she had an acute onset, stabbing, lower abdominal/pelvic pain, which does not radiate. Associated with nausea without vomiting, diaphoresis. She has never had pain like this in the past. Maximal in onset at the beginning of pain, currently remains 10 out of 10, she tried sitting in warm water, cold water, but neither of these helped, so she came to the ER for further evaluation. Patient states that she is also been having dysuria without hematuria, but denies fevers, chills, vomiting, abnormal vaginal discharge or bleeding, neurologic deficits. Last menstrual period was 2 weeks prior to arrival and was normal for her Related Data Home Medications Medication Instructions Recorded Confirmed lamotrigine 100 mg tablet 100 mg PO BID Seizure disorder 10/29/22 10/29/22 Previous Rx's Medication Instructions Recorded cefdinir 300 mg capsule 300 mg PO BID 10 days #20 caps 10/29/22 ketorolac 10 mg tablet 10 mg PO Q8H PRN pain #20 tabs 10/29/22 ondansetron 4 mg disintegrating 4 mg PO Q8H PRN nausea and 10/29/22 tablet vomiting 4 days #12 tabs Allergies Allergy/AdvReac Type Severity Reaction Status Date / Time bee venom protein (honey bee) Allergy Severe Anaphylaxis Verified 07/02/22 12:40 Penicillins Allergy Verified 10/29/22 06:00 red dye Allergy Verified 10/29/22 06:00 PFS <Tremaine Duckworth MD - Last Filed: 10/29/22 07:05> [facility] Disclaimer: The information contained in this section may have been updated after the patient was seen, as this information can be updated by other users. Social History Smoking Status: Never smoker alcohol intake: never current occupational status: other Travel in the last 8 weeks: N
[2022-10-29 06:25] LABS: Chloride 108 mmol/L (98-107); Potassium 5.1 mmoL/L (3.5-5.1); Sodium 137 mmol/L (136-145)
[2022-10-29 06:28] LABS: Alanine Aminotransferase 20 U/L (12-78); Albumin Level 4.2 g/dl (3.5-5.0); Albumin/Globulin Ratio 1.2 (1.1-1.8); Alkaline Phosphatase 50 U/L (38-126); Anion Gap 16.1 mEq/L (5-15); Aspartate Amino Transferase 34 U/L (14-36); Bilirubin,Total 0.6 mg/dl (0.2-1.3); Calcium 9.7 mg/dl (8.4-10.2); Carbon Dioxide 18 mmol/L (22.0-30.0); Globulin 3.6 g/dL (1.3-3.2); Glucose 109 mg/dl (74-100); Lactic Acid 1.4 mmol/L (0.7-2.1); Lipase 77 U/L (23-300); Total Protein,Serum 7.8 g/dl (6.3-8.2)
--- NOTE | 2022-10-29 06:33 | PC.NURSE ---
pt transported to ultrasound
--- NOTE | 2022-10-29 07:10 | PC.NURSE ---
call from lab stating that green top was hemolyzed. this nurse got two green top vials for lab. sent to lab.
[2022-10-29 07:25] VITALS: BP 97/60; PULSE 64; O2SAT 98
[2022-10-29 07:34] LABS: Blood Urea Nitrogen 18 mg/dl (7-17); Creatinine Clearance Estimated 111 mL/min (50-200); Estimated Glomerular Filt Rate 72 ml/min (>60); GFR (African American) 87 ML/MIN (>60)
[2022-10-29 08:35] VITALS: BP 106/75; PULSE 64; RESP 16; TEMP 36.6
== END 2022-10-29 08:49 | disposition still patient (30) ==
PROVIDERS: Emergency Medicine; Emergency Provider Emergency Medicine; PCP Nurse Practitioner Psychiatric/Mental Health
DX: N12 Tubulo-interstitial nephritis, not specified as acute or chronic (principal); R10.2 Pelvic and perineal pain
CPT/HCPCS: 76830; 80053; 81001; 81025; 83605; 83690; 85025; 87086; 87088; 87186; 96361; 96365; 96375; 99285; J0131; J0696

== ENCOUNTER 2022-11-04 15:11 | Emergency (ER) | payer MEDICAID, SELFPAY ==
[2022-11-04 15:13] VITALS: BP 128/75; PULSE 76; RESP 16; TEMP 37.3; O2SAT 97; BMI 28.2
--- NOTE | 2022-11-04 15:35 | HMH.EDGENADL ---
Discharge Plan Disposition Patient Disposition: Home, Self-Care Condition: Good Prescriptions Prescriptions: New fluconazole 150 mg tablet 150 mg PO Q3D Qty: 2 0RF conjugated estrogens 0.625 mg/gram cream 1 applic vaginal DAILY 10 Days Qty: 30 0RF Probiotic 10 billion cell capsule 10,000 mmu cells PO DAILY Qty: 30 0RF No Action lamotrigine 100 mg tablet 100 mg PO BID Patient Comments: TAKE 1 TABLET BY MOUTH IN THE MORNING AND 1 TABLET AT BEDTIME cefdinir 300 mg capsule 300 mg PO BID 10 Days Qty: 20 0RF ketorolac 10 mg tablet 10 mg PO Q8H PRN (Reason: pain) Qty: 20 0RF ondansetron 4 mg tablet,disintegrating 4 mg PO Q8H PRN (Reason: nausea and vomiting) 4 Days Qty: 12 0RF Referrals Follow up/Referrals: Anisa Gonsales DO [Staff Physician] - See instructions Juliet Staley APRN [Primary Care Provider] - See instructions Activity Restrictions/Add. Instructions Additional Instructions/Restrictions: You were evaluated in the emergency department today. Please pick up attendant your prescriptions at the pharmacy and use them as prescribed. I encourage oatmeal baths, sitz bath's, and keep the area clean and dry. Do not use scented soaps or other products vaginally. Avoid intercourse or tampon insertion until your symptoms have resolved. Take your full course of antibiotics that were previously prescribed to you at home. Follow-up outpatient with gynecology. We are providing you with the phone number for director of volunteer services. Please call and schedule an appointment to follow-up with them soon as possible. Return to the emergency department for new or worsening symptoms. Clinical Impressions Clinical Impression: Vaginal yeast infection, Vaginitis Instructions Patient Instructions: DI for Vulvo-vaginal Tears, DI for Vaginal Yeast Infection, DI for Vaginal Itching Discharge ED Provider: Alice Gomez General Adult HPI General Chief complaint: PAIN Stated complaint: vaginal inflammation and redness Time Seen by Provider: 11/04/22 15:24 Mode of Arrival: Ambulatory Source of Information: Patient Limitations: No Limitations Description of Symptoms (Recalled from ER Triage Doc. by RN): Pt reports vaginal pain/irritation and redness that began today, pt also reports white vaginal discharge that began today. Pt reports currently on antibiotics for treatment of UTI (Cefdinir) History of Present Illness HPI narrative: This patient is a 32-year-old female who denies significant past medical history presenting to the emergency department for vaginal itching, vaginal burning, and vaginal redness that started today. She also notes that she has had white vaginal discharge that smells different from her usual discharge. She states that when she goes to pee, she feels like she has a tear that velez when the urine is hitting it. She is currently on cefdinir for treatment of urinary tract infection. On medical record review she was prescribed this on 10/29/2022. Patient denies any other concerns and states that overall she is feeling better with no fevers, nausea, vomiting, or other concerns. Related Data Home Medications Medication Instructions Recorded Confirmed lamotrigine 100 mg tablet 100 mg PO BID Seizure disorder 10/29/22 10/29/22 Previous Rx's Medication Instructions Recorded cefdinir 300 mg capsule 300 mg PO BID 10 days #20 caps 10/29/22 ketorolac 10 mg tablet 10 mg PO Q8H PRN pain #20 tabs 10/29/22 ondansetron 4 mg disintegrating 4 mg PO Q8H PRN nausea and 10/29/22 tablet vomiting 4 days #12 tabs Lactobacillus acidophilus 10 10,000 mmu cells PO DAILY #30 caps 11/04/22 billion cell capsule (Probiotic) conjugated estrogens 0.625 mg/gram 1 applic vaginal DAILY 10 days #30 11/04/22 vaginal cream grams fluconazole 150 mg tablet 150 mg PO Q3D 2 doses #2 tabs 11/04/22 Allergies Allergy/AdvReac Type Severity Reaction Status Date / Time bee venom protein (honey bee) Allergy Severe Anaphyl
[2022-11-04 16:17] VITALS: BP 113/67; PULSE 75; RESP 17; TEMP 36.7; O2SAT 97
== END 2022-11-04 16:18 | disposition home or self-care (01) ==
PROVIDERS: Emergency Provider Emergency Medicine; PCP Nurse Practitioner Psychiatric/Mental Health
DX: N76.0 Acute vaginitis (principal); B37.31 Acute candidiasis of vulva and vagina
CPT/HCPCS: 96372; 99283

== ENCOUNTER 2023-01-04 13:47 | Emergency (ER) | payer MEDICAID, SELFPAY ==
--- NOTE | 2023-01-04 14:09 | HMH.EDGENADL ---
Discharge Plan Disposition Patient Disposition: Home, Self-Care Prescriptions Prescriptions: New hydroxyzine HCl 25 mg tablet 25 mg PO Q8H PRN (Reason: itching) Qty: 30 0RF No Action sumatriptan succinate 50 mg tablet 50 mg PO ONCE lamotrigine 100 mg tablet 100 mg PO BID Patient Comments: TAKE 1 TABLET BY MOUTH IN THE MORNING AND 1 TABLET AT BEDTIME ondansetron 4 mg tablet,disintegrating 4 mg PO Q8H PRN (Reason: nausea and vomiting) 4 Days Qty: 12 0RF conjugated estrogens 0.625 mg/gram cream 1 applic vaginal DAILY 10 Days Qty: 30 0RF Referrals Follow up/Referrals: Juliet Staley APRN [Primary Care Provider] - See instructions Activity Restrictions/Add. Instructions Additional Instructions/Restrictions: Consider using [id number] steroid and antihistamine creams. Please take hydroxyzine as prescribed for itching. Clinical Impressions Clinical Impression: Rash of face Instructions Patient Instructions: DI for Rash Discharge ED Provider: Walter Starr General Adult HPI General Chief complaint: Skin/Abscess/Foreign Body Stated complaint: POISON UMM Time Seen by Provider: 01/04/23 13:56 History of Present Illness HPI narrative: 32-year-old female presents with a rash on the face. Present at the jawline bilaterally, patient reports that she thinks it is poison umm. She also reports that she has other allergies and has had exposure to new detergents recently. She reports it is very itchy. Denies any concern for infectious etiology. She is concerned because it is itchy and it is going to interfere with her hollowing costume. Related Data Home Medications Medication Instructions Recorded Confirmed lamotrigine 100 mg tablet 100 mg PO BID Seizure disorder 10/29/22 12/05/22 sumatriptan succinate 50 mg tablet 50 mg PO ONCE 12/05/22 12/05/22 Previous Rx's Medication Instructions Recorded ondansetron 4 mg disintegrating 4 mg PO Q8H PRN nausea and 10/29/22 tablet vomiting 4 days #12 tabs conjugated estrogens 0.625 mg/gram 1 applic vaginal DAILY 10 days #30 11/04/22 vaginal cream grams hydroxyzine HCl 25 mg tablet 25 mg PO Q8H PRN itching #30 tabs 01/04/23 Allergies Allergy/AdvReac Type Severity Reaction Status Date / Time bee venom protein (honey bee) Allergy Severe Anaphylaxis Verified 12/05/22 13:53 Penicillins Allergy Verified 12/05/22 13:53 red dye Allergy Verified 12/05/22 13:53 [facility] Disclaimer: The information contained in this section may have been updated after the patient was seen, as this information can be updated by other users. Family History Other Asthma Cancer Social History Smoking Status: Unknown if ever smoked alcohol intake: never current occupational status: other Travel in the last 8 weeks: None ROS Obtained: Yes All systems reviewed & no additional complaints except as documented Physical Exam General General appearance: alert and in no apparent distress Head Head exam: atraumatic and normocephalic Eye Eye exam: Present normal appearance, PERRL and EOMI ENT ENT exam: Present normal oropharynx, normal external ear exam and other (Mildly erythematous grouped vesicular rash on the mid jaw line bilaterally. No involvement of the oropharynx.) Neck Neck exam: Present normal inspection and full ROM Chest Chest inspection: Present normal inspection and symmetric chest wall rise; Absent tenderness Respiratory Respiratory exam: Present normal lung sounds bilaterally; Absent respiratory distress Cardiovascular Cardiovascular exam: Present regular rate and normal rhythm Abdominal Exam Abdominal exam: Present soft; Absent distention, tenderness or guarding Extremities Exam Extremities exam: Present normal inspection; Absent edema or joint swelling Back Exam Back exam: Present normal inspection; Absent tender
[2023-01-04 14:12] VITALS: BP 121/69; PULSE 79; RESP 16; TEMP 36.7; O2SAT 100; BMI 26.6
[2023-01-04 14:21] VITALS: BP 120/70; PULSE 80; RESP 18; TEMP 36.6; O2SAT 98
== END 2023-01-04 14:30 | disposition home or self-care (01) ==
PROVIDERS: Emergency Provider Emergency Medicine; PCP Nurse Practitioner Psychiatric/Mental Health
DX: L23.7 Allergic contact dermatitis due to plants, except food (principal); R21 Rash and other nonspecific skin eruption
CPT/HCPCS: 99282

== ENCOUNTER 2023-02-11 01:44 | Emergency (ER) | payer MEDICAID, SELFPAY ==
[2023-02-11 01:46] VITALS: BP 116/77; PULSE 87; RESP 18; TEMP 36.8; O2SAT 98; BMI 26.6
--- NOTE | 2023-02-11 02:13 | HMH.EDGENADL ---
Discharge Plan Disposition Patient Disposition: Home, Self-Care Condition: Good Prescriptions Prescriptions: New metronidazole 500 mg tablet 500 mg PO BID 7 Days Qty: 14 0RF cefdinir 300 mg capsule 300 mg PO BID 5 Days Qty: 10 0RF No Action sumatriptan succinate 50 mg tablet 50 mg PO ONCE hydroxyzine HCl 25 mg tablet 25 mg PO Q8H PRN (Reason: itching) Qty: 30 0RF lamotrigine 100 mg tablet 100 mg PO BID Patient Comments: TAKE 1 TABLET BY MOUTH IN THE MORNING AND 1 TABLET AT BEDTIME ondansetron 4 mg tablet,disintegrating 4 mg PO Q8H PRN (Reason: nausea and vomiting) 4 Days Qty: 12 0RF conjugated estrogens 0.625 mg/gram cream 1 applic vaginal DAILY 10 Days Qty: 30 0RF Referrals Follow up/Referrals: Juliet Staley APRN [Primary Care Provider] - See instructions Clinical Impressions Clinical Impression: Acute bacterial simple cystitis, Vaginal discharge, Screening examination for STI Instructions Patient Instructions: DI for Urinary Tract Infection (UTI) Discharge ED Provider: Karolyn Strickland General Adult HPI General Chief complaint: Urogenital-Female Stated complaint: Pressure with urination,lower back pain Time Seen by Provider: 02/11/23 01:56 Mode of Arrival: Ambulatory Source of Information: Patient Limitations: No Limitations Description of Symptoms (Recalled from ER Triage Doc. by RN): Pt presents with complants of difficulty urinating, lower abdominal pressure, and lower back pain. Hx of UTI. LMP 02/04. Denies N/V/D. History of Present Illness HPI narrative: Ms. Staley is a 33-year-old female with previous medical history of recent pyelonephritis followed by vaginal candidiasis presenting with 24 hours of dysuria. Patient states that she has had some vaginal pain that worsens with urination. She also has noted increased discharge that is yellowish. She states this is different than the discharge she had with vaginal candidiasis so she was concerned she may have a urinary infection or some other vaginal infection. Denies fever, abdominal pain, vomiting, vaginal bleeding, or other concerns. Last menstrual period 02/04. Related Data Home Medications Medication Instructions Recorded Confirmed lamotrigine 100 mg tablet 100 mg PO BID Seizure disorder 10/29/22 12/05/22 sumatriptan succinate 50 mg tablet 50 mg PO ONCE 12/05/22 12/05/22 Previous Rx's Medication Instructions Recorded ondansetron 4 mg disintegrating 4 mg PO Q8H PRN nausea and 10/29/22 tablet vomiting 4 days #12 tabs conjugated estrogens 0.625 mg/gram 1 applic vaginal DAILY 10 days #30 11/04/22 vaginal cream grams hydroxyzine HCl 25 mg tablet 25 mg PO Q8H PRN itching #30 tabs 01/04/23 cefdinir 300 mg capsule 300 mg PO BID 5 days #10 caps 02/11/23 metronidazole 500 mg tablet 500 mg PO BID 7 days #14 tabs 02/11/23 Allergies Allergy/AdvReac Type Severity Reaction Status Date / Time bee venom protein (honey bee) Allergy Severe Anaphylaxis Verified 12/05/22 13:53 Penicillins Allergy Verified 12/05/22 13:53 red dye Allergy Verified 12/05/22 13:53 [facility] Disclaimer: The information contained in this section may have been updated after the patient was seen, as this information can be updated by other users. Family History Other Asthma Cancer Social History Smoking Status: Never smoker alcohol intake: never current occupational status: other Travel in the last 8 weeks: None ROS Obtained: Yes Systems reviewed as appropriate & no additional complaints except as documented Physical Exam General General appearance: alert and in no apparent distress Head Head exam: atraumatic, normocephalic and normal inspection Eye Eye exam: Present normal appearance, PERRL and EOMI ENT ENT exam: Present normal exam, normal oropharynx, mucous membranes justice
[2023-02-11 02:17] LABS: Appearance,Urine TURBID (Clear); Bilirubin,Urine Negative (Negative); Blood, Urine 1+ (Negative); Color,Urine YELLOW (Yellow); Glucose,Urine (UA) Negative (Negative); Ketones,Urine TRACE (Negative); Leukocyte Esterase,Urine 1+ (Negative); Microscopic, Urine URINE MICROSCOPIC (MICROSCOPIC); Nitrate,Urine Negative (Negative); Protein,Urine TRACE (Negative); Specific Gravity, Urine >= 1.030 (1.005-1.030); Urobilinogen,Urine 0.2 EU/dl (0.2)
[2023-02-11 02:24] LABS: Urine Pregnancy, HCG Qual. Negative (Negative)
[2023-02-11 02:28] LABS: WBC,Urine 20-50 #/hpf (0-3)
[2023-02-11 02:29] LABS: Bacteria,Urine 2+ /lpf; Mucus,Urine 1+ /lpf
[2023-02-11 03:11] VITALS: BP 120/78; PULSE 82; RESP 18; TEMP 36.8; O2SAT 98
[2023-02-15 21:45] LABS: Trichomonas Vaginalis, NAA NEGATIVE
[2023-02-15 21:46] LABS: Neisseria gonorrhoeae, NAA NEGATIVE
--- NOTE | 2023-02-17 08:15 | PC.NURSE ---
urine results show entercoccus faecalis, Per MD. Gomez not further action needed due to pt dc with cefdinir and metronidazole
== END 2023-02-11 03:19 | disposition home or self-care (01) ==
PROVIDERS: Emergency Provider Emergency Medicine; PCP Nurse Practitioner Psychiatric/Mental Health
DX: N30.00 Acute cystitis without hematuria (principal); R10.30 Lower abdominal pain, unspecified; M54.50 Low back pain, unspecified; N89.9 Noninflammatory disorder of vagina, unspecified; J45.909 Unspecified asthma, uncomplicated
CPT/HCPCS: 81001; 81025; 87086; 87210; 87491; 87591; 87661; 96372; 99285; J0696

== ENCOUNTER 2023-03-05 06:29 | Emergency (ER) | payer MEDICAID, SELFPAY ==
[2023-03-05 06:34] VITALS: BP 113/77; PULSE 115; O2SAT 93
[2023-03-05 06:38] VITALS: BP 113/77; PULSE 115; RESP 18; TEMP 38.4; O2SAT 100; BMI 25.8
--- NOTE | 2023-03-05 06:41 | PC.NURSE ---
in room talking with patient at this time.
--- NOTE | 2023-03-05 06:50 | HMH.EDGENADL ---
Discharge Plan Disposition Patient Disposition: Still a Patient Chief Complaint: Headache Prescriptions Prescriptions: No Action sumatriptan succinate 50 mg tablet 50 mg PO ONCE lamotrigine 100 mg tablet 100 mg PO BID Patient Comments: TAKE 1 TABLET BY MOUTH IN THE MORNING AND 1 TABLET AT BEDTIME ondansetron 4 mg tablet,disintegrating 4 mg PO Q8H PRN (Reason: nausea and vomiting) 4 Days Qty: 12 0RF conjugated estrogens 0.625 mg/gram cream 1 applic vaginal DAILY 10 Days Qty: 30 0RF Referrals Follow up/Referrals: Juliet Staley APRN [Primary Care Provider] - See instructions Clinical Impressions Clinical Impression: Migraine Qualifiers: Migraine type: other Status migrainosus presence: with status migrainosus Discharge ED Provider: Walter Starr Adult HPI General Chief complaint: Headache Stated complaint: Migraine,fever Time Seen by Provider: 03/05/23 06:35 Mode of Arrival: Ambulatory Source of Information: Patient Limitations: No Limitations Description of Symptoms (Recalled from ER Triage Doc. by RN): 33 year old female with complaints of migraine headache that started at 0545 this morning. Patient states she has a history of seizures and believe she had 2 at this time. States she woke up twitching and eyes rolling back states the seizures was not witnessed by anyone. History of Present Illness HPI narrative: 33-year-old female with reported history of migraines and seizure disorder on lamotrigine presents with headache for the last 2 days. She reports it is 10 out of 10. She reports it is frontal in nature. Worse than normal headache. She woke up this morning and felt like her arms were twitchy and drawing up and her eyes rolled back and she reports that she had 2 seizures this morning. She said that they were characteristic of her normal seizures. She reports that her last seizure was a year ago. She also reports that she was feeling sweaty this morning, upon arrival was noted to be febrile to 101. She denies any chest pain abdominal pain throat pain shortness of breath urinary changes. She reports that she is currently menstruating and could not be . She was treated for UTI during the beginning of the month but reports that it resolved completely. She reports that she takes her seizure medication every day as prescribed. Related Data Home Medications Medication Instructions Recorded Confirmed lamotrigine 100 mg tablet 100 mg PO BID Seizure disorder 10/29/22 03/05/23 sumatriptan succinate 50 mg tablet 50 mg PO ONCE 12/05/22 03/05/23 Previous Rx's Medication Instructions Recorded ondansetron 4 mg disintegrating 4 mg PO Q8H PRN nausea and 10/29/22 tablet vomiting 4 days #12 tabs conjugated estrogens 0.625 mg/gram 1 applic vaginal DAILY 10 days #30 11/04/22 vaginal cream grams Allergies Allergy/AdvReac Type Severity Reaction Status Date / Time bee venom protein (honey bee) Allergy Severe Anaphylaxis Verified 12/05/22 13:53 Penicillins Allergy Verified 12/05/22 13:53 red dye Allergy Verified 12/05/22 13:53 [facility] Disclaimer: The information contained in this section may have been updated after the patient was seen, as this information can be updated by other users. Family History Other Asthma Cancer Social History Smoking Status: Never smoker alcohol intake: never current occupational status: other Travel in the last 8 weeks: None ROS Obtained: Yes All systems reviewed & no additional complaints except as documented Physical Exam General General appearance: alert, in no apparent distress and other (Eyes closed, reports photophobia) Head Head exam: atraumatic and normocephalic Eye Eye exam: Present normal appearance, PERRL and EOMI; Absent conjunctival injection ENT ENT exam: Present normal
[2023-03-05 07:00] VITALS: BP 113/77; PULSE 99; RESP 20; O2SAT 98
[2023-03-05 07:09] LABS: Basophils % 0.6 % (0.1-2.0); Eosinophils # 0.1 K/mm3 (0.0-0.4); Hematocrit 41.2 % (37.0-47.0); Hemoglobin 13.6 g/dL (12.2-16.2); Lymphocytes # 0.5 K/mm3 (0.7-4.5); Lymphocytes % 10.4 % (10-50); Mean Corpuscular HGB Conc 33.1 g/dL (31.8-35.4); Mean Corpuscular Hemoglobin 28.1 pg (27.0-31.2); Mean Corpuscular Volume 84.9 fl (81-99); Mean Platelet Volume 7.4 fl (7.4-10.4); Monocytes # 0.4 K/mm3 (0.1-1.0); Monocytes % 9.2 % (1.7-9.3); Neutrophils # 3.6 K/mm3 (1.8-7.8); Neutrophils % 76.8 % (37.0-80.0); Platelet Count 233 K/mm3 (142-424); Red Blood Count 4.85 M/mm3 (4.20-5.40); Red Cell Distribution Width 13.6 % (11.5-17.5); White Blood Count 4.7 K/mm3 (4.8-10.8)
[2023-03-05 07:19] LABS: HCG Qualitative, Serum Negative (Negative)
[2023-03-05 07:21] LABS: Alanine Aminotransferase 24 U/L (12-78); Albumin Level 4.2 g/dl (3.5-5.0); Albumin/Globulin Ratio 1.3 (1.1-1.8); Alkaline Phosphatase 60 U/L (38-126); Anion Gap 13.5 mEq/L (5-15); Aspartate Amino Transferase 31 U/L (14-36); Bilirubin,Total 0.4 mg/dl (0.2-1.3); Blood Urea Nitrogen 13 mg/dl (7-17); Calcium 8.4 mg/dl (8.4-10.2); Carbon Dioxide 19 mmol/L (22.0-30.0); Chloride 106 mmol/L (98-107); Creatinine Clearance Estimated 104 mL/min (50-200); Estimated Glomerular Filt Rate 72 ml/min (>60); GFR (African American) 87 ML/MIN (>60); Globulin 3.2 g/dL (1.3-3.2); Glucose 97 mg/dl (74-100); Potassium 3.5 mmoL/L (3.5-5.1); Sodium 135 mmol/L (136-145); Total Protein,Serum 7.4 g/dl (6.3-8.2)
[2023-03-05 07:32] LABS: Influenza A, PCR Not Detected (NotDetected); Influenza B, PCR Not Detected (NotDetected)
--- NOTE | 2023-03-05 07:33 | PC.NURSE ---
Pt ambulatory to bathroom. No other needs voiced. Call light within reach.
[2023-03-05 07:36] LABS: Microscopic, Urine URINE MICROSCOPIC (MICROSCOPIC)
[2023-03-05 07:39] LABS: Appearance,Urine SL CLOUDY (Clear); Bilirubin,Urine Negative (Negative); Blood, Urine 1+ (Negative); Color,Urine YELLOW (Yellow); Glucose,Urine (UA) Negative (Negative); Ketones,Urine Negative (Negative); Leukocyte Esterase,Urine Negative (Negative); Nitrate,Urine Negative (Negative); PH,Urine 8.5 (5.0-8.5); Protein,Urine Negative (Negative); Urobilinogen,Urine 0.2 EU/dl (0.2)
[2023-03-05 07:50] LABS: Amorphous Sediment,Urine 3+ /lpf; Bacteria,Urine Trace /lpf; WBC,Urine Occasional #/hpf (0-3)
[2023-03-05 07:53] LABS: Coronavirus 19, PCR Detected (NotDetected)
--- NOTE | 2023-03-05 08:10 | HMH.EDGENADL ---
Discharge Plan Disposition Patient Disposition: Still a Patient Prescriptions Prescriptions: No Action sumatriptan succinate 50 mg tablet 50 mg PO ONCE lamotrigine 100 mg tablet 100 mg PO BID Patient Comments: TAKE 1 TABLET BY MOUTH IN THE MORNING AND 1 TABLET AT BEDTIME ondansetron 4 mg tablet,disintegrating 4 mg PO Q8H PRN (Reason: nausea and vomiting) 4 Days Qty: 12 0RF conjugated estrogens 0.625 mg/gram cream 1 applic vaginal DAILY 10 Days Qty: 30 0RF Referrals Follow up/Referrals: Juliet Staley APRN [Primary Care Provider] - See instructions Activity Restrictions/Add. Instructions Additional Instructions/Restrictions: You may take Tylenol and ibuprofen as needed for your symptoms otherwise follow-up with primary care doctor as needed. Clinical Impressions Clinical Impression: COVID-19 Migraine Qualifiers: Migraine type: other Status migrainosus presence: with status migrainosus Stand Alone Forms Stand Alone Forms: Work/School Release Discharge ED Provider: Walter Starr General Adult HPI <Keo Talbot MD - Last Filed: 03/05/23 08:11> General Chief complaint: Headache Stated complaint: Migraine,fever Time Seen by Provider: 03/05/23 06:35 Mode of Arrival: Ambulatory Source of Information: Patient Limitations: No Limitations Description of Symptoms (Recalled from ER Triage Doc. by RN): 33 year old female with complaints of migraine headache that started at 0545 this morning. Patient states she has a history of seizures and believe she had 2 at this time. States she woke up twitching and eyes rolling back states the seizures was not witnessed by anyone. Related Data Home Medications Medication Instructions Recorded Confirmed lamotrigine 100 mg tablet 100 mg PO BID Seizure disorder 10/29/22 03/05/23 sumatriptan succinate 50 mg tablet 50 mg PO ONCE 12/05/22 03/05/23 Previous Rx's Medication Instructions Recorded ondansetron 4 mg disintegrating 4 mg PO Q8H PRN nausea and 10/29/22 tablet vomiting 4 days #12 tabs conjugated estrogens 0.625 mg/gram 1 applic vaginal DAILY 10 days #30 11/04/22 vaginal cream grams Allergies Allergy/AdvReac Type Severity Reaction Status Date / Time bee venom protein (honey bee) Allergy Severe Anaphylaxis Verified 12/05/22 13:53 Penicillins Allergy Verified 12/05/22 13:53 red dye Allergy Verified 12/05/22 13:53 PF[facility] <Keo Talbot MD - Last Filed: 03/05/23 08:11> PFS Disclaimer: The information contained in this section may have been updated after the patient was seen, as this information can be updated by other users. Family History Other Asthma Cancer Social History Smoking Status: Never smoker alcohol intake: never current occupational status: other Travel in the last 8 weeks: None <Keo Talbot MD - Last Filed: 03/05/23 08:11> ROS Obtained: Yes All systems reviewed & no additional complaints except as documented Physical Exam <Keo Talbot MD - Last Filed: 03/05/23 08:11> General General appearance: alert, in no apparent distress and other (Eyes closed, reports photophobia) Respiratory Respiratory exam: Present normal lung sounds bilaterally Cardiovascular Cardiovascular exam: Present regular rate Neurological Exam Neurological exam: Present alert and oriented X3 Medical Decision Making <Keo Talbot MD - Last Filed: 03/05/23 08:11> Wm Inquiry Pt receiving controlled substance: No Vital Signs: 03/05/23 06:38 03/05/23 06:34 03/05/23 07:00 Temperature 101.1 F H Temperature Source Oral Pulse Rate 115 H 99 H Pulse Rate [Left Radial] 115 H Respiratory Rate 18 20 Blood Pressure 113/77 113/77 Blood Pressure [Right Arm] 113/77 Blood Pressure Mean [Right Arm] 89 02 Sat by Pulse Oximetry 100 93 L 98 Oxygen Delivery Method Room Air
[2023-03-05 08:17] VITALS: BP 100/60; PULSE 93; RESP 17; TEMP 36.7; O2SAT 96
== END 2023-03-05 08:18 | disposition still patient (30) ==
PROVIDERS: Emergency Provider Emergency Medicine; PCP Nurse Practitioner Psychiatric/Mental Health
DX: U07.1 COVID-19 (principal); G43.901 Migraine, unspecified, not intractable, with status migrainosus
CPT/HCPCS: 80053; 81001; 84703; 85025; 87636; 96361; 96374; 96375; 99285

== ENCOUNTER 2023-03-23 11:32 | Outpatient (CLI) | payer MEDICAID, SELFPAY ==
--- NOTE | 2023-03-23 11:32 | US_ITS ---
PROCEDURE: US TRANSVAGINAL CLINICAL INDICATION: irregular menses COMPARISON: No exams were available for comparison FINDINGS: Transvaginal sonographic images of the pelvis were obtained. UTERUS: 6.5 cm x 3.8 cmx 2.7 cm anteverted with a combined endometrial thickness of 8.9mm. There is a 3.4 mm nabothian cyst in the cervix. Within the endometrium on the left side at the fundus there is a cystic structure and within the structure is a small 2.7 mm hyperechoic area. LEFT OVARY: 1.6 cmx1.9 cmx3.0cm with a volume of 4.8ml. There are several small peripheral follicles. There is a small follicle measuring 0.65 cm. RIGHT OVARY: 2.8 cmx 1.9 cmx1.4cm with a volume of 3.7ml. There is a follicle measuring 0.9 cm. Both ovaries are seen and appear normal. Doppler flow to both ovaries are seen. There is no fluid in the cul-de-sac. IMPRESSION: 1. Anteverted uterus normal in shape and size. The endometrium is normal thickness at 8.9 mm.. 2. Adjacent to the endometrium there is a cystic area and within the cystic structure is a hyperechoic nodule measuring 2.7 mm. This is located at the fundus of the uterus adjacent to the endometrium on the left side. Would suggest a quantitative beta hCG. 3. Both ovaries are seen and appear normal there are follicles in each ovary. 4. No fluid in the cul-de-sac. Dictated by: Danish Booth MD 03/23/2023 14:06 Danish Booth MD in OV 03/23/2023 14:06
[2023-03-23 12:04] LABS: Basophils # 0.1 K/mm3 (0-0.2); Eosinophils # 0.2 K/mm3 (0.0-0.4); Eosinophils % 3.3 % (0.1-12.0); Hematocrit 42.5 % (37.0-47.0); Hemoglobin 14.4 g/dL (12.2-16.2); Lymphocytes # 2.7 K/mm3 (0.7-4.5); Lymphocytes % 40.7 % (10-50); Mean Corpuscular HGB Conc 33.9 g/dL (31.8-35.4); Mean Corpuscular Hemoglobin 28.6 pg (27.0-31.2); Mean Corpuscular Volume 84.4 fl (81-99); Mean Platelet Volume 7.8 fl (7.4-10.4); Monocytes # 0.4 K/mm3 (0.1-1.0); Monocytes % 6.4 % (1.7-9.3); Neutrophils # 3.2 K/mm3 (1.8-7.8); Neutrophils % 48.6 % (37.0-80.0); Platelet Count 273 K/mm3 (142-424); Red Blood Count 5.03 M/mm3 (4.20-5.40); White Blood Count 6.7 K/mm3 (4.8-10.8)
[2023-03-23 12:16] LABS: Hemoglobin A1C 5.1 % (4.0-6.0)
[2023-03-23 12:25] LABS: Alanine Aminotransferase 23 U/L (12-78); Alkaline Phosphatase 63 U/L (38-126); Aspartate Amino Transferase 25 U/L (14-36); Bilirubin,Total 0.6 mg/dl (0.2-1.3); Blood Urea Nitrogen 18 mg/dl (7-17); Carbon Dioxide 24 mmol/L (22.0-30.0); Chloride 104 mmol/L (98-107); Estimated Glomerular Filt Rate 63 ml/min (>60); GFR (African American) 77 ML/MIN (>60)
[2023-03-23 12:26] LABS: Albumin Level 4.2 g/dl (3.5-5.0); Albumin/Globulin Ratio 1.4 (1.1-1.8); Calcium 8.8 mg/dl (8.4-10.2); Globulin 3.1 g/dL (1.3-3.2); Glucose 92 mg/dl (74-100); Glucose,Fasting 92 mg/dl (74-100); Potassium 3.9 mmoL/L (3.5-5.1); Total Protein,Serum 7.3 g/dl (6.3-8.2)
[2023-03-23 14:03] LABS: Anion Gap 11.9 mEq/L (5-15); Sodium 136 mmol/L (136-145)
[2023-03-24 08:29] LABS: FSH 6.7 mIU/mL (.)
[2023-03-24 11:14] LABS: Insulin Level Total 11.2 uIU/mL (2.6-24.9)
[2023-03-26 16:38] LABS: Testosterone, Total, LC/MS 25 ng/dL (.)
[2023-03-29 09:44] LABS: Anti Mullerian Hormone (AMH) 0.142
== END 2023-03-23 23:59 ==
LOC: RAD 11:32
PROVIDERS: PCP Nurse Practitioner Psychiatric/Mental Health; Visit Provider Obstetrics & Gynecology
DX: N92.6 Irregular menstruation, unspecified (principal)
CPT/HCPCS: 36415; 76830; 80053; 82397; 82670; 82947; 83001; 83036; 83525; 84403; 84443; 85025

== ENCOUNTER 2023-03-25 12:54 | Outpatient (CLI) | payer MEDICAID, SELFPAY ==
[2023-03-25 13:33] LABS: HCG Qualitative, Serum Negative (Negative)
== END 2023-03-25 23:59 ==
LOC: LAB 12:55
PROVIDERS: PCP Nurse Practitioner Psychiatric/Mental Health; Visit Provider Obstetrics & Gynecology
DX: Z32.00 Encounter for pregnancy test, result unknown (principal)
CPT/HCPCS: 36415; 84703

== ENCOUNTER 2024-01-22 11:55 | Emergency (ER) | payer MEDICAID, SELFPAY ==
[2024-01-22 12:12] VITALS: BP 119/77; PULSE 92; RESP 18; TEMP 36.9; O2SAT 98; BMI 26.6
[2024-01-22 12:31] LABS: UTC Pregnancy Test, Urine Negative (Negative)
--- NOTE | 2024-01-22 12:31 | ED_ITS ---
Discharge Plan Disposition Patient Disposition: Home, Self-Care Condition: Good Prescriptions Prescriptions: No Action sumatriptan succinate 50 mg tablet 50 mg PO ONCE epinephrine 0.3 mg/0.3 mL auto-injector 0.3 ml SQ PRN lamotrigine 100 mg tablet 100 mg PO BID Patient Comments: TAKE 1 TABLET BY MOUTH IN THE MORNING AND 1 TABLET AT BEDTIME Referrals Follow up/Referrals: Juliet Staley APRN [Primary Care Provider] - See instructions Activity Restrictions/Add. Instructions Additional Instructions/Restrictions: Follow up with your Family Doctor Follow up with your OBGYN for further evaluation and testing Return if needed Straight to ER if any life threatening symptoms Clinical Impressions Clinical Impression: test negative Print Language Print Language: Somali Discharge ED Provider: Grace Guzman [facility] General Stated complaint: test Mode of Arrival: Ambulatory Source of Information: Patient Limitations: No Limitations Time Seen by Provider: 01/22/24 12:31 Description of Symptoms (Recalled from Triage Doc. by RN): Reports that she is here for a test. HEENT Symptoms (Recalled from RN notes): No Resp Symptoms (Recalled from RN notes): No Skin Symptoms (Recalled from RN notes): No MS Symptoms (Recalled from RN notes): No Functional Status (Recalled from RN notes): wnl History of Present Illness Provider Complaint: Patient states that she is wanting to get a test States that she has taken a couple test at home and one was positive and one was negative Related Data Home Medications ?Medication ?Instructions ?Recorded ?Confirmed lamotrigine 100 mg tablet 100 mg PO BID Seizure disorder 10/29/22 06/23/23 sumatriptan succinate 50 mg tablet 50 mg PO ONCE 12/05/22 06/23/23 epinephrine 0.3 mg/0.3 mL 0.3 ml SQ PRN 03/20/23 06/23/23 injection, auto-injector Allergies Allergy/AdvReac Type Severity Reaction Status Date / Time bee venom protein (honey bee) Allergy Severe Anaphylaxis Verified 06/23/23 14:43 Penicillins Allergy Verified 06/23/23 14:43 red dye Allergy Verified 06/23/23 14:43 Worker's Comp Is this a Worker's Comp case?: No [facility] Disclaimer: The information contained in this section may have been updated after the ashley ent was seen, as this information can be updated by other users. Medical History Patient desires Irregular periods/menstrual cycles Family History Other Asthma Cancer Social History Smoking Status: Current every day smoker tobacco type: e-cigarettes and smokeless tobacco alcohol intake: never current occupational status: other Travel in the last 8 weeks: None ROS Obtained: Yes All systems reviewed & no additional complaints except as documented and Yes Systems reviewed as appropriate & no additional complaints e xcept as documented Constitutional Constitutional: Reports system reviewed and no additional complaints, except as documented and Reports as per HPI ENT Ears, Nose, Mouth, and Throat: Reports system reviewed and no additional complaints, except as documented and Reports as per HPI Cardiovascular Cardiovascular: Reports system reviewed and no additional complaints, except as documented and Reports as per HPI Respiratory Respiratory: Reports system reviewed and no additional complaints, except as documented and Reports as per HPI Gastrointestinal Gastrointestingal: Reports system reviewed and no additional complaints, except as documented and as per HPI Genitourinary Female Genitourinary: Reports system reviewed and no additional complaints, except as documented, Reports as per HPI and Reports other (period is late) Musculoskeletal Musculoskeletal: Reports system reviewed and no additional complaints, except as documented and Reports as per HPI Physical Exam General General appearance: alert and in no apparent distress ENT ENT exam: Present mucous membranes moist Chest Chest inspection: Present normal inspection and symmetric chest wall rise Respiratory Respiratory exam: Present normal lung sounds bilaterally; Absent respiratory distress or wheezes Cardiovascular Cardiovascular exam: Present regular rate and normal heart sounds; Absent normal rhythm or bradycardia Abdominal Exam Abdominal exam: Present soft and normal bowel sounds; Absent distention or tenderness Neurological Exam Neurological exam: Present alert, oriented X3 and normal gait Medical Decision Making Medical Records Screening: Per USPSTF and CDC recommendations, given the prevalence of disease in our region, it is our hospital?s policy to screen for HIV and viral Hepatitis for all patients aged 18 and over and those with ongoing risk factors. Wm Inquiry Pt receiving controlled substance: No Wm was queried for this patient: No Vital Signs: 01/22/24 12:12 Temperature 98.4 F Temperature Source Oral Pulse Rate [Radial] 92 H Respiratory Rate 18 Blood Pressure [Right Arm] 119/77 Blood Pressure Mean [Right Arm] 91 Blood Pressure Source [Right Arm] Automatic Cuff Blood Pressure Position [Right Arm] Sitting 02 Sat by Pulse Oximetry 98 Oxygen Delivery Method Room Air Lab Data Lab results reviewed: Yes I reviewed the patient's lab results.
[2024-01-22 12:54] VITALS: BP 119/77; PULSE 92; RESP 18; TEMP 36.9; O2SAT 98
== END 2024-01-22 12:54 | disposition home or self-care (01) ==
PROVIDERS: Emergency Provider Nurse Practitioner; PCP Nurse Practitioner Psychiatric/Mental Health
DX: Z32.02 Encounter for pregnancy test, result negative (principal)
CPT/HCPCS: 81025; 99212; G0381

== ENCOUNTER 2024-01-28 09:45 | Emergency (ER) | payer MEDICAID, SELFPAY ==
[2024-01-28] VITALS (10 sets, daily range): BP systolic 106–139; BP diastolic 54–93; PULSE 67–87; RESP 16–18; TEMP 36.7; O2SAT 99–100; BMI 26.6
--- NOTE | 2024-01-28 10:10 | CT_ITS ---
PROCEDURE INFORMATION: Exam: CT Abdomen And Pelvis With Contrast Exam date and time: 01/28/2024 11:48 AM Age: 34 years old Clinical indication: Abdominal pain; Generalized; Additional info: Low abd pain vaginal discharge TECHNIQUE: Imaging protocol: Computed tomography of the abdomen and pelvis with contrast. Radiation optimization: All CT scans at this facility use at least one of these dose optimization techniques: automated exposure control; mA and/or kV adjustment per patient size (includes targeted exams where dose is matched to clinical indication); or iterative reconstruction. Contrast material: ISOVUE; Contrast volume: 75 ml; Contrast route: IV; COMPARISON: No relevant prior studies available. FINDINGS: Liver: The liver is unremarkable. Gallbladder and biliary ducts: Gallbladder unremarkable Pancreas: Pancreas unremarkable Spleen: The spleen is unremarkable. Adrenal glands: Adrenal glands unremarkable. Kidneys and ureters: No hydronephrosis. Stomach and bowel: Apparent wall thickening in the colon may be secondary to incomplete filling versus mild colitis. Clinically correlate. The cecum is located in the pelvis. The appendix is not definitively identified. Appendix: See Stomach and bowel finding. Intraperitoneal space: Trace free fluid in the cul-de-sac Vasculature: Unremarkable. No abdominal aortic aneurysm. Lymph nodes: Unremarkable. No enlarged lymph nodes. Urinary bladder: Unremarkable as visualized. Reproductive: Unremarkable as visualized. Bones/joints: Unremarkable. No acute fracture. Soft tissues: Unremarkable. IMPRESSION: 1. Apparent wall thickening in the colon may be secondary to incomplete filling versus mild colitis. Clinically correlate. 2. The cecum is located in the pelvis. The appendix is not definitively identified.
[2024-01-28] MEDS: ACETAMINOPHEN 1,000MG/100ML VIAL 1000 MG IV (10:16)
[2024-01-28 10:25] LABS: Microscopic, Urine URINE MICROSCOPIC (MICROSCOPIC)
[2024-01-28 10:27] LABS: Basophils # 0.1 K/mm3 (0-0.2); Eosinophils # 0.1 K/mm3 (0.0-0.4); Eosinophils % 1.4 % (0.1-12.0); Hematocrit 45.4 % (37.0-47.0); Hemoglobin 15.3 g/dL (12.2-16.2); Lymphocytes # 1.7 K/mm3 (0.7-4.5); Mean Corpuscular HGB Conc 33.6 g/dL (31.8-35.4); Mean Corpuscular Hemoglobin 29.1 pg (27.0-31.2); Mean Corpuscular Volume 86.4 fl (81-99); Monocytes # 0.4 K/mm3 (0.1-1.0); Monocytes % 4.9 % (1.7-9.3); Neutrophils # 6.1 K/mm3 (1.8-7.8); Neutrophils % 72.7 % (37.0-80.0); Platelet Count 296 K/mm3 (142-424); Red Blood Count 5.25 M/mm3 (4.20-5.40); Red Cell Distribution Width 13.4 % (11.5-17.5); White Blood Count 8.4 K/mm3 (4.8-10.8)
[2024-01-28 10:33] LABS: Albumin Level 4.7 g/dl (3.5-5.0); Chloride 105 mmol/L (98-107); Potassium 3.8 mmoL/L (3.5-5.1); Sodium 139 mmol/L (136-145)
[2024-01-28 10:35] LABS: Alanine Aminotransferase 21 U/L (12-78); Aspartate Amino Transferase 27 U/L (14-36); Blood Urea Nitrogen 15 mg/dl (7-17); Creatinine Clearance Estimated 84 mL/min (50-200); Estimated Glomerular Filt Rate 57 ml/min (>60); GFR (African American) 68 ML/MIN (>60)
[2024-01-28 10:36] LABS: Bilirubin,Urine Negative (Negative); Blood, Urine 3+ (Negative); Glucose,Urine (UA) Negative (Negative); Ketones,Urine Negative (Negative); Leukocyte Esterase,Urine 3+ (Negative); Nitrate,Urine Negative (Negative); Protein,Urine Negative (Negative); Specific Gravity, Urine <= 1.005 (1.005-1.030); Urobilinogen,Urine 0.2 EU/dl (0.2)
[2024-01-28 10:36] LABS: Albumin/Globulin Ratio 1.3 (1.1-1.8); Alkaline Phosphatase 58 U/L (38-126); Anion Gap 14.8 mEq/L (5-15); Bilirubin,Total 0.7 mg/dl (0.2-1.3); Calcium 9.5 mg/dl (8.4-10.2); Carbon Dioxide 23 mmol/L (22.0-30.0); Globulin 3.6 g/dL (1.3-3.2); Glucose 116 mg/dl (74-100); Lipase 67 U/L (23-300); Total Protein,Serum 8.3 g/dl (6.3-8.2)
[2024-01-28 10:40] LABS: Appearance,Urine Slightly Cloudy (Clear); Color,Urine Straw (Yellow)
[2024-01-28 10:42] LABS: HCG Qualitative, Serum Negative (Negative)
--- NOTE | 2024-01-28 11:11 | HMH.EDGENADL ---
Discharge Plan Disposition Patient Disposition: Home, Self-Care Prescriptions Prescriptions: New ondansetron 4 mg tablet,disintegrating 4 mg PO Q8H PRN (Reason: nausea and vomiting) 4 Days Qty: 12 0RF levofloxacin 750 mg tablet 750 mg PO DAILY 6 Days Qty: 6 0RF metronidazole 500 mg tablet 500 mg PO BID 7 Days Qty: 14 0RF ondansetron 4 mg tablet,disintegrating 4 mg PO Q8H PRN (Reason: nausea and vomiting) 4 Days Qty: 12 0RF No Action sumatriptan succinate 50 mg tablet 50 mg PO ONCE epinephrine 0.3 mg/0.3 mL auto-injector 0.3 ml SQ PRN lamotrigine 100 mg tablet 100 mg PO BID Patient Comments: TAKE 1 TABLET BY MOUTH IN THE MORNING AND 1 TABLET AT BEDTIME Referrals Follow up/Referrals: Juliet Staley APRN [Primary Care Provider] - See instructions Activity Restrictions/Add. Instructions Additional Instructions/Restrictions: At this time it was felt you are safe to be discharged home. If new or worsening symptoms please do not hesitate to return the emergency department. Please call and schedule appoint with Kate Reddy as soon as you are able to ensure resolution. Please take your antibiotics and nausea medicine as prescribed. Clinical Impressions Clinical Impression: Cervicitis Print Language Print Language: Welsh Discharge ED Provider: Atif Reddy General Adult HPI General Chief complaint: Urogenital-Female Stated complaint: abdomen pain Time Seen by Provider: 01/28/24 10:00 Mode of Arrival: EMS Source of Information: Patient Limitations: No Limitations Description of Symptoms (Recalled from ER Triage Doc. by RN): lower abdominal pain with discharge History of Present Illness HPI narrative: Patient is a 34-year-old female with chronic vaginal discharge, previous urinary tract infection who presents to the emergency department for evaluation of lower abdominal pain and vaginal discharge. She states that she has vaginal discharge at baseline that varies in color, she is monogamous with 1 sexual partner. Her vaginal discharge has been dark brown recently which is different than normal. She has low pelvic pain and suprapubic abdominal pain. Normal stooling, no high abdominal pain, no other acute complaints at this time Related Data Home Medications ?Medication ?Instructions ?Recorded ?Confirmed lamotrigine 100 mg tablet 100 mg PO BID Seizure disorder 08/19/23 04/12/24 sumatriptan succinate 50 mg tablet 50 mg PO ONCE 12/05/22 06/23/23 epinephrine 0.3 mg/0.3 mL 0.3 ml SQ PRN 03/20/23 06/23/23 injection, auto-injector Previous Rx's ?Medication ?Instructions ?Recorded levofloxacin 750 mg tablet 750 mg PO DAILY Cervicitis 6 days 01/28/24 #6 tabs metronidazole 500 mg tablet 500 mg PO BID cervicitis 7 days 01/28/24 #14 tabs ondansetron 4 mg disintegrating 4 mg PO Q8H PRN nausea and 01/28/24 tablet vomiting 4 days #12 tabs ondansetron 4 mg disintegrating 4 mg PO Q8H PRN nausea and 01/28/24 tablet vomiting 4 days #12 tabs Allergies Allergy/AdvReac Type Severity Reaction Status Date / Time bee venom protein (honey bee) Allergy Severe Anaphylaxis Verified 06/23/23 14:43 Penicillins Allergy Anaphylaxis Verified 01/28/24 11:27 red dye Allergy Anaphylaxis Verified 01/28/24 11:27 [facility] Disclaimer: The information contained in this section may have been updated after the patient was seen, as this information can be updated by other users. Medical History Patient desires Irregular periods/menstrual cycles Family History Other Asthma Cancer Social History Smoking Status: Never smoker alcohol intake: never current occupational status: other Travel in the last 8 weeks: None Other Medical History Have you received the Flu Vaccine for this season: No Have you received the Pneumonia Vaccine: No ROS Obtained: Yes Systems reviewed as appropriate & no additional complaints except as documented Physical Exam General General appearance: alert and in no apparent distress Head Head exam: atraumatic and normocephalic Eye Eye exam: Present PERRL and EOMI ENT ENT exam: Present mucous membranes moist Neck Neck exam: Present normal inspection Chest Chest inspection: Present normal inspection and symmetric chest wall rise Respiratory Respiratory exam: Present normal lung sounds bilaterally; Absent respiratory distress Cardiovascular Cardiovascular exam: Present regular rate and normal rhythm Abdominal Exam Abdominal exam: Present soft and tenderness (Suprapubic); Absent guarding or rebound External exam: Present normal external exam Speculum exam: Present other (Frothy brown-colored vaginal discharge from the cervix with ulcerative lesion over the cervical os) Bimanual exam: Present other ([employer]el Operation [employer] present) Extremities Exam Extremities exam: Present normal inspection Neurological Exam Neurological exam: Present alert Psychiatric Psychiatric exam: Present normal affect Skin Skin exam: Present warm and dry Medical Decision Making Medical Records Screening: Per USPSTF and CDC recommendations, given the prevalence of disease in our region, it is our hospital?s policy to screen for HIV and viral Hepatitis for all patients aged 18 and over and those with ongoing risk factors. Wm Inquiry Pt receiving controlled substance: No Vital Signs: 01/28/24 09:45 01/28/24 09:49 01/28/24 10:15 Temperature 98.1 F Temperature Source Oral Pulse Rate 80 72 Pulse Rate [Right] 86 Respiratory Rate 18 Blood Pressure 132/87 133/69 Blood Pressure [Right Arm] 132/87 Blood Pressure Mean 94 90 Blood Pressure Mean [Right Arm] 102 02 Sat by Pulse Oximetry 100 100 100 Oxygen Delivery Method Room Air Room Air Room Air 01/28/24 10:30 01/28/24 11:00 01/28/24 12:16 Temperature Temperature Source Pulse Rate 69 69 87 Pulse Rate [Right] Respiratory Rate Blood Pressure 129/81 139/93 H 111/65 Blood Pressure [Right Arm] Blood Pressure Mean 99 102 86 Blood Pressure Mean [Right Arm] 02 Sat by Pulse Oximetry 100 100 100 Oxygen Delivery Method Room Air Room Air Room Air 01/28/24 12:31 01/28/24 13:00 Temperature Temperature Source Pulse Rate 86 69 Pulse Rate [Right] Respiratory Rate Blood Pressure 108/54 L 129/77 Blood Pressure [Right Arm] Blood Pressure Mean 72 94 Blood Pressure Mean [Right Arm] 02 Sat by Pulse Oximetry 99 100 Oxygen Delivery Method Room Air Room Air Lab Data Lab Results 01/28/24 10:05: WBC 8.4, RBC 5.25, Hgb 15.3, Hct 45.4, MCV 86.4, MCH 29.1, MCHC 33.6, RDW 13.4, Plt Count 296, MPV 7.0 L, Neut % (Auto) 72.7, Lymph % (Auto) 20.0, Cross % (Auto) 4.9, Eos % (Auto) 1.4, Baso % (Auto) 1.0, Neut # (Auto) 6.1, Lymph # (Auto) 1.7, Cross # (Auto) 0.4, Eos # (Auto) 0.1, Baso # (Auto) 0.1, Sodium 139, Potassium 3.8, Chloride 105, Carbon Dioxide 23, Anion Gap 14.8, BUN 15, Creatinine 1.10 H, Estimated Creat Clear 84, Estimated GFR 57 L, Est GFR ( Amer) 68, Glucose 116 H, Calcium 9.5, Total Bilirubin 0.7, AST 27, ALT 21, Alkaline Phosphatase 58, Total Protein 8.3 H, Albumin 4.7, Globulin 3.6 H, Albumin/Globulin Ratio 1.3, Lipase 67, Serum HCG, Qual Negative, HIV 1&2 Antibody Rapid Nonreactive 01/28/24 10:08: Urine Color Straw, Urine Appearance Slightly cloudy, Urine pH 7.0, Ur Specific [place] <= 1.005, Urine Protein Negative, Urine Glucose (UA) Negative, Urine Ketones Negative, Urine Blood 3+ A, Urine Nitrate Negative, Urine Bilirubin Negative, Urine Urobilinogen 0.2, Ur Leukocyte Esterase 3+ A, Urine RBC 3-5, Urine WBC 20-50, Ur Squamous Epith Cells 5-10, Urine Bacteria 1+ 01/28/24 10:05 01/28/24 10:05 Orders (Tests/Meds): ED MEDICATIONS Generic Name Dose Route Start Last Admin Trade Name Freq PRN Reason Stop Dose Admin Ceftriaxone Sodium 1,000 mg 01/28/24 13:56 Ceftriaxone 500mg Vial IM 01/28/24 13:57 ONCE ONE Levofloxacin 750 mg 01/28/24 13:56 Levofloxacin 750 Mg Tablet PO 01/28/24 13:57 ONCE ONE Lidocaine HCl 0 ml 01/28/24 13:56 Lidocaine 1% 5ml Pf Vial IM 01/28/24 13:57 ONCE ONE Discontinued Medications Generic Name Dose Route Start Last Admin Trade Name Freq PRN Reason Stop Dose Admin Acetaminophen 1,000 mg 01/28/24 10:10 01/28/24 10:16 Acetaminophen 1,000mg/100ml Vial IV 01/28/24 10:11 1,000 mg ONCE ONE Administration Azithromycin 2,000 mg 01/28/24 11:37 01/28/24 13:23 Azithromycin 250mg Tablet PO 01/28/24 11:38 Not Given ONCE ONE Ceftriaxone Sodium 1 gm 01/28/24 11:17 01/28/24 11:55 Ceftriaxone 1gm Vial IM 01/28/24 11:18 Not Given ONCE ONE Ceftriaxone Sodium 500 mg 01/28/24 13:56 Ceftriaxone 500mg Vial IM 01/28/24 13:57 ONCE ONE Diphenhydramine HCl 25 mg 01/28/24 11:32 01/28/24 11:47 Diphenhydramine 50mg/Ml Vial IV 01/28/24 11:33 25 mg ONCE ONE Administration Doxycycline Hyclate 100 mg 01/28/24 11:18 01/28/24 12:07 Doxycycline Hycl 100 Mg Tablet PO 01/28/24 11:19 Not Given ONCE ONE Gentamicin Sulfate 240 mg/ 106 mls @ 106 mls/hr 01/28/24 11:33 01/28/24 12:11 Sodium Chloride IV 01/28/24 11:34 106 mls/hr ONCE ONE Administration Iopamidol 75 ml 01/28/24 11:53 01/28/24 11:56 Iopamidol-370 (76%);100ml Bottle IV 01/28/24 11:54 75 ml ONCE ONE Administration Lidocaine HCl 0 ml 01/28/24 11:17 01/28/24 13:04 Lidocaine 1% 5ml Pf Vial IM 01/28/24 11:18 Not Given ONCE ONE Metronidazole 500 mg 01/28/24 11:17 01/28/24 11:55 Metronidazole 500 Mg Tablet PO 01/28/24 11:18 Not Given ONCE ONE Ondansetron HCl 4 mg 01/28/24 11:17 Ondansetron 4mg/2ml Vial IV 01/28/24 11:18 ONCE ONE Sodium Chloride 10 ml 01/28/24 11:53 01/28/24 11:55 Sodium Chloride 0.9% 10ml Syr (Rad Only) IV 01/28/24 11:54 10 ml ONCE ONE Administration ORDERS Category Date Time Status CT abdomen pelvis w con Stat Cat Scan 01/28/24 10:10 Completed CBC w/Auto Diff [Complete Blood Count Auto Diff] Stat Lab 01/28/24 10:05 Completed CMP [Comprehensive Metabolic Panel] Stat Lab 01/28/24 10:05 Completed HIV (1&2) Antibody Rapid Stat Lab 01/28/24 10:05 Completed Hep C Ab with Reflex to RNA Stat Lab 01/28/24 10:05 Received Lipase Stat Lab 01/28/24 10:05 Completed Serum [HCG Qualitative, Serum] Stat Lab 01/28/24 10:05 Completed Trichomonas Vaginalis, EDA Stat Lab 01/28/24 10:14 Received Urinalysis and Microscopic Stat Lab 01/28/24 10:08 Completed Urine Culture Stat Micro 01/28/24 10:08 Received Medical Decision Narrative: In summary patient is a 34-year-old female past medical history described above presents emergency department for evaluation of lower abdominal pain, vaginal discharge. Patient is hemodynamically stable nontoxic-appearing upon arrival, afebrile. Differential includes urinary tract infection, STI, , TOA, among others. Workup we conducted with hematologic labs, urinalysis, vaginal swabs, CT abdomen pelvis IV contrast. Initial inventions include IV Tylenol. Patient has cervicitis on physical exam given history of multiple allergies acceptable regimen that covers common STIs including gonorrhea, chlamydia, trichomonas with going to conducted with gentamicin and azithromycin and tonight is all however after gentamicin was administered unfortunately there are no azithromycin preparations which do not contain red dye for which she is anaphylactic. The case was discussed with pharmacy at length, patient will be given ceftriaxone intramuscular given that she has tolerated ceftriaxone before per their chart review, will also give levofloxacin and metronidazole. Hematologic labs reviewed by me and are nonactionable, no significant leukocytosis, no JACKIE or critical electrolyte abnormality, urinalysis interpreted by me, significant sterile pyuria which further points to cervicitis. CT abdomen pelvis shows wall thickening of the colon which may represent colitis, the appendix is not definitively identified however there are no secondary findings of appendicitis and patient clinically has cervicitis to explain her findings therefore I have no concern for appendicitis. Patient we discharged with a course of levofloxacin and metronidazole and Zofran was given multiple return precautions. Patient will follow-up with Kate Reddy on an outpatient basis. Critical Care Critical Care Time Critical Care Time: No
--- NOTE | 2024-01-28 11:23 | PC.NURSE ---
PT TO CT
--- NOTE | 2024-01-28 11:24 | PC.NURSE ---
PT REFUSED CT WITH CONTRAST, DR ROSE AT BEDSIDE
[2024-01-28 11:29] LABS: WBC,Urine 20-50 #/hpf (0-3)
[2024-01-28 11:31] LABS: Bacteria,Urine 1+ /lpf
[2024-01-28] MEDS: diphenhydrAMINE 50MG/ML VIAL 25 MG IV (11:47)
[2024-01-28] MEDS: SODIUM CHLORIDE 0.9% 10ML SYR (RAD ONLY) 10 ML IV (11:55)
[2024-01-28] MEDS: IOPAMIDOL-370 (76%);100ML BOTTLE 75 ML IV (11:56)
--- NOTE | 2024-01-28 11:59 | PC.NURSE ---
PT RETURNED FROM CT
--- NOTE | 2024-01-28 12:01 | PC.NURSE ---
PT RETURNED FROM CT SCAN AT THIS TIME.
--- NOTE | 2024-01-28 12:03 | PC.NURSE ---
spoke with Sal Pharmacist. toniazole does not have red dye
[2024-01-28] MEDS: SODIUM CHLORIDE 0.9% IV (12:11)
[2024-01-28] MEDS: GENTAMICIN SULFATE IV (12:11)
[2024-01-28 12:33] LABS: HIV (1&2) Antibody Rapid NONREACTIVE (NONREACTIVE)
[2024-01-28] MEDS: LIDOCAINE 1% 5ML PF VIAL IM (14:11)
[2024-01-28] MEDS: cefTRIAXone 1GM VIAL 1 GM IM (14:11)
[2024-01-28] MEDS: levoFLOXacin 750 MG TABLET PO (14:11)
--- NOTE | 2024-01-29 07:44 | PC.NURSE ---
urine culture discussed with , pt dc with levaquin and marvin, ntd at this time until final report
[2024-01-30 05:29] LABS: HCV Ab Non Reactive (Non Reactive)
--- NOTE | 2024-01-30 08:52 | PC.NURSE ---
pt updated in change of antibiotic for her urine culture, pt ok to have the antibiotic called into [facility]
--- NOTE | 2024-01-30 13:04 | PC.NURSE ---
Called [facility] pharmacy, bactrim ds called in for pt to take for her urine culture results per
[2024-01-30 22:07] LABS: Neisseria gonorrhoeae, NAA Negative (Negative)
[2024-01-31 03:37] LABS: Trichomonas Vaginalis, NAA Negative (Negative)
== END 2024-01-28 14:45 | disposition home or self-care (01) ==
PROVIDERS: Emergency Provider Emergency Medicine; PCP Nurse Practitioner Psychiatric/Mental Health
DX: N72 Inflammatory disease of cervix uteri (principal); R10.30 Lower abdominal pain, unspecified; N89.8 Other specified noninflammatory disorders of vagina
CPT/HCPCS: 74177; 80053; 81001; 83690; 84703; 85025; 86803; 87086; 87088; 87186; 87389; 87491; 87591; 87661; 96372; 96374; 96375; 99285; J0131; J0696; J1200; J1580; Q9967

== ENCOUNTER 2024-08-07 21:35 | Emergency (ER) | payer MEDICAID, SELFPAY ==
[2024-08-07 22:23] VITALS: BP 111/74; PULSE 74; RESP 16; TEMP 36.9; O2SAT 98; BMI 28.1
--- NOTE | 2024-08-07 22:41 | ED_ITS ---
Discharge Plan Disposition Patient Disposition: Home, Self-Care Condition: Good Prescriptions Prescriptions: New sulfamethoxazole-trimethoprim 800-160 mg tablet 1 tab PO BID 7 Days Qty: 14 0RF No Action sumatriptan succinate 50 mg tablet 50 mg PO ONCE epinephrine 0.3 mg/0.3 mL auto-injector 0.3 ml SQ PRN ondansetron 4 mg tablet,disintegrating 4 mg PO Q8H PRN (Reason: nausea and vomiting) 4 Days Qty: 12 0RF levofloxacin 750 mg tablet 750 mg PO DAILY 6 Days Qty: 6 0RF metronidazole 500 mg tablet 500 mg PO BID 7 Days Qty: 14 0RF ondansetron 4 mg tablet,disintegrating 4 mg PO Q8H PRN (Reason: nausea and vomiting) 4 Days Qty: 12 0RF lamotrigine 100 mg tablet 100 mg PO BID Patient Comments: TAKE 1 TABLET BY MOUTH IN THE MORNING AND 1 TABLET AT BEDTIME Referrals Follow up/Referrals: Provider,Referral, MD [Primary Care Provider, Medical] - See instructions Activity Restrictions/Add. Instructions Additional Instructions/Restrictions: Please take antibiotics as prescribed. Please follow up with your PCP. Return to the ER if symptoms are worsening despite antibiotics. Clinical Impressions Clinical Impression: UTI (urinary tract infection) Qualifiers: Urinary tract infection type: acute cystitis Hematuria presence: with hematuria Qualified Code(s): N30.01 - Acute cystitis with hematuria Instructions Patient Instructions: DI for Urinary Tract Infection (UTI), DI for Urinary Tract Infection in Children Print Language Print Language: Croatian Discharge ED Provider: Walter Starr General Adult HPI General Chief complaint: Urogenital-Female Stated complaint: Possible Uti; Kidney Infection; Passing out Time Seen by Provider: 08/07/24 22:41 Mode of Arrival: Wheelchair Source of Information: Patient Description of Symptoms (Recalled from ER Triage Doc. by RN): C/o of burning with urination x 2 days. History of Present Illness HPI narrative: 34-year-old female with history of prior UTI, seizure disorder on lamotrigine presents for urinary symptoms. She reports dysuria, urinary frequency and urgency over the last couple days. She also reports some low back pain and chills. She reports that she has had a kidney infection before and this feels a bit similar. Related Data Home Medications ?Medication ?Instructions ?Recorded ?Confirmed lamotrigine 100 mg tablet 100 mg PO BID Seizure disord er 10/29/22 06/23/23 sumatriptan succinate 50 mg tablet 50 mg PO ONCE 12/0506/23/23 epinephrine 0.3 mg/0.3 mL 0.3 ml SQ PRN 03/20/2306/22 injection, auto-injector Previous Rx's ?Medication ?Instructions ?Recorded levofloxacin 750 mg tablet 750 mg PO DAILY Cervicitis 6 days 01/28/24 #6 tabs metronidazole 500 mg tablet 500 mg PO BID cervicitis 7 days 01/28/24 #14 tabs ondansetron 4 mg disintegrating 4 mg PO Q8H PRN nausea and 01/28/24 tablet vomiting 4 days #12 tabs ondansetron 4 mg disintegrating 4 mg PO Q8H PRN nausea and 01/28/24 tablet vomiting 4 days #12 tabs sulfamethoxazole 800 1 tab PO BID 7 days #14 tabs 08/07/24 mg-trimethoprim 160 mg tablet Allergies Allergy/AdvReac Type Severity Reaction Status Date / Time bee venom protein (honey bee) Allergy Severe Anaphylaxis Verified 06/23/23 14:43 Penicillins Allergy Anaphylaxis Verified 01/28/24 11:27 red dye Allergy Anaphylaxis Verified 01/28/24 11:27 [facility] Disclaimer: The information contained in this section may have been updated after the patient was seen, as this information can be updated by other users. Medical History Patient desires Irregular periods/menstrual cycles Family History Other Asthma Cancer Social History Smoking Status: Smoker, status unknown tobacco type: e-cigarettes and smokeless tobacco alcohol intake: never current occupational status: other Travel in the last 8 weeks?: None Have you lived/traveled outside [place] in past 30 days?: No Contact w/someone who lives/traveled outside [place] past 30 days?: No Exposure to someone with infectious disease in past 14 days?: No Do you have a fever (greater than 100.4 F or 38 C)?: No Have you tested positive for COVID-19?: No Exposed to someone with COVID-19 in past 14 days?: No Do you have a sore throat?: No Do you have a cough?: No Do you have any weakness?: No Do you have any diarrhea?: No Are you experiencing any unusual bleeding?: No Do you have any muscle aches/pain?: No Do you have any abdominal pain?: No Are you experiencing loss of taste or smell?: No Other Medical History Have you received the Flu Vaccine for this season: No Have you received the Pneumonia Vaccine: No ROS Obtained: Yes All systems reviewed & no additional complaints except as documented Physical Exam General General appearance: alert and in no apparent distress Head Head exam: atraumatic and normocephalic Eye Eye exam: Present normal appearance, PERRL and EOMI ENT ENT exam: Present normal oropharynx and normal external ear exam Neck Neck exam: Present normal inspection and full ROM Chest Chest inspection: Present normal inspection and symmetric chest wall rise; Absent tenderness Respiratory Respiratory exam: Present normal lung sounds bilaterally; Absent respiratory distress Cardiovascular Cardiovascular exam: Present regular rate and normal rhythm Abdominal Exam Abdominal exam: Present soft and tenderness (Suprapubic); Absent distention or guarding Extremities Exam Extremities exam: Present normal inspection; Absent edema or joint swelling Back Exam Back exam: Present normal inspection and tenderness (Mild low back/sacral tenderness); Absent CVA tenderness (R) or CVA tenderness (L) Neurological Exam Neurological exam: Present alert and oriented X3; Absent motor sensory deficit Psychiatric Psychiatric exam: Present normal affect and normal mood Skin Skin exam: Present warm, dry and normal color Lymphatic Lymphatic Findings: no adenopathy Medical Decision Making Medical Records Medical records reviewed: Yes I reviewed the patient's medical records. Screening: Per USPSTF and CDC recommendations, given the prevalence of disease in our region, it is our hospital?s policy to screen for HIV and viral Hepatitis for all patients aged 18 and over and those with ongoing risk factors. Wm Inquiry Pt receiving controlled substance: No Wm was queried for this patient: No Vital Signs: 08/07/24 22:23 08/08/24 00:10 Temperature 98.4 F 98.7 F Temperature Source Oral Oral Pulse Rate 108 H Pulse Rate [Right Brachial] 74 Respiratory Rate 16 16 Blood Pressure 138/88 Blood Pressure [Right Arm] 111/74 Blood Pressure Mean [Right Arm] 86 Blood Pressure Source Automatic Cuff Blood Pressure Source [Right Arm] Automatic Cuff Blood Pressure Position Sitting Blood Pressure Position [Right Arm] Sitting 02 Sat by Pulse Oximetry 98 Oxygen Delivery Method Room Air Lab Data Lab results reviewed: Yes I reviewed the patient's lab results. Lab Results 08/07/24 22:34: Urine Color Yellow, Urine Appearance Cloudy, Urine pH 6.0, Ur Specific [place] >= 1.030, Urine Protein Trace, Urine Glucose (UA) Negative, Urine Ketones Negative, Urine Blood 3+ A, Urine Nitrate Negative, Urine Bilirubin Negative, Urine Urobilinogen 0.2, Ur Leukocyte Esterase 1+ A, Urine RBC Tntc, Urine WBC Tntc, Ur Squamous Epith Cells 10-20, Urine Bacteria 4+, Urine HCG, Qual Negative Orders (Tests/Meds): ED MEDICATIONS Discontinued Medications Generic Name Dose Route Start Last Admin Trade Name Freq PRN Reason Stop Dose Admin Acetaminophen 1,000 mg 08/07/24 22:46 08/07/24 23:44 Acetaminophen 500mg Tab PO 08/07/24 22:47 1,000 mg ONCE ONE Administration Ketorolac Tromethamine 30 mg 08/07/24 23:50 08/08/24 00:07 Ketorolac 30mg/Ml Vial IM 08/07/24 23:51 30 mg ONCE ONE Administration Trimethoprim/Sulfamethoxazole 1 each 08/07/24 22:46 08/08/24 00:07 Sulfa/Trimethoprim 1 Tablet PO 08/07/24 22:47 1 each ONCE ONE Administration ORDERS Category Date Time Status UA [Urinalysis and Microscopic] Stat Lab 08/07/24 22:34 Completed Urine , HCG Qual. Stat Lab 08/07/24 22:34 Completed Urine Culture Stat Micro 08/07/24 22:34 Received Medical Decision Narrative: 34-year-old female with history of prior UTI, seizure disorder presents for couple days of dysuria urgency hematuria and abdominal and low back pain. History was obtained via interactive discussion with patient. On arrival, patient is [afebrile, hemodynamically stable, satting appropriately, alert, oriented x4, GCS 15], moving all extremities spontaneously. Full physical exam performed and significant for suprapubic tenderness, low back tenderness, no CVA tenderness Differential includes but is not limited to UTI, cystitis, pyelonephritis. Given no fever, no CVA tenderness, concern for pyelonephritis/kidney stone is lower. Presentation is more consistent with cystitis. Urinalysis and urine were sent off. Patient was given Tylenol. On reassessment urinalysis on my independent interpretation is consistent with infection. Patient was initiated on Bactrim and discharged with prescription for same. Return precautions given for worsening symptoms despite antibiotics.. Procedures Risk/Benefits of Procedure(s) Were Explained: Yes Critical Care Critical Care Time Critical Care Time: No
[2024-08-07 23:01] LABS: Microscopic, Urine URINE MICROSCOPIC (MICROSCOPIC)
[2024-08-07 23:02] LABS: Bilirubin,Urine Negative (Negative); Blood, Urine 3+ (Negative); Color,Urine YELLOW (Yellow); Glucose,Urine (UA) Negative (Negative); Ketones,Urine Negative (Negative); Leukocyte Esterase,Urine 1+ (Negative); Nitrate,Urine Negative (Negative); Protein,Urine TRACE (Negative); Specific Gravity, Urine >= 1.030 (1.005-1.030); Urobilinogen,Urine 0.2 EU/dl (0.2)
[2024-08-07 23:03] LABS: Appearance,Urine Cloudy (Clear)
[2024-08-07 23:06] LABS: Urine Pregnancy, HCG Qual. Negative (Negative)
[2024-08-07] MEDS: ACETAMINOPHEN 500MG TAB 1000 MG PO (23:44)
[2024-08-07 23:52] LABS: Bacteria,Urine 4+ /lpf; RBC,Urine TNTC #/hpf (0-3); WBC,Urine TNTC #/hpf (0-3)
[2024-08-08] MEDS: KETOROLAC 30MG/ML VIAL 30 MG IM (00:07)
[2024-08-08] MEDS: SULFA/TRIMETHOPRIM 1 TABLET 1 EACH PO (00:07)
[2024-08-08 00:10] VITALS: BP 138/88; PULSE 108; RESP 16; TEMP 37.1
--- NOTE | 2024-08-11 16:42 | PC.NURSE ---
I discussed pt's urine culture with Dr Talbot. She is on an appropriate abx, ntd.
== END 2024-08-08 00:11 | disposition home or self-care (01) ==
PROVIDERS: Emergency Provider Emergency Medicine
DX: N30.01 Acute cystitis with hematuria (principal); R30.0 Dysuria; R39.15 Urgency of urination
CPT/HCPCS: 81001; 81025; 87086; 87088; 87186; 96372; 99283; J1885

== ENCOUNTER 2024-09-04 14:12 | Outpatient (CLI) | payer MEDICAID, SELFPAY ==
[2024-09-04 18:16] LABS: Basophils # 0.1 K/mm3 (0-0.2); Basophils % 0.8 % (0.1-2.0); Eosinophils # 0.1 Kmm3 (0.0-0.4); Eosinophils % 0.8 % (0.1-12.0); Hematocrit 43.3 % (37.0-47.0); Hemoglobin 14.4 g/dL (12.2-16.2); Immature Granulocytes # 0.01 10^3uL; Immature Granulocytes % 0.2 %; Lymphocytes # 2.5 K/mm3 (0.7-4.5); Lymphocytes % 37.6 % (10-50); Mean Corpuscular HGB Conc 33.3 g/dL (31.8-35.4); Mean Corpuscular Hemoglobin 28.6 pg (27.0-31.2); Mean Corpuscular Volume 85.9 fl (81-99); Monocytes # 0.5 K/mm3 (0.1-1.0); Neutrophils # 3.6 K/mm3 (1.8-7.8); Neutrophils % 53.6 % (37.0-80.0); Nucleated Red Blood Cells # 0 10^3/uL; Nucleated Red Blood Cells % 0 %; Platelet Count 250 K/mm3 (142-424); Red Blood Count 5.04 M/mm3 (4.20-5.40); Red Cell Distribution Width-SD 40.7 fL; White Blood Count 6.6 K/mm3 (4.8-10.8)
[2024-09-04 19:33] LABS: Free Thyroxine Index 3.2 ug/dL (5.93-13.13); T4 (Thyroxine) 9.3 ug/dl (5.53-11.0); Triiodothryronine (T3) Uptake 34 % (23.5-40.5)
[2024-09-04 19:52] LABS: Hemoglobin A1C 5.8 % (4.0-6.0)
[2024-09-04 21:06] LABS: Alanine Aminotransferase 12 U/L (12-78); Albumin Level 4.6 g/dl (3.5-5.0); Albumin/Globulin Ratio 1.4 (1.1-1.8); Alkaline Phosphatase 55 U/L (38-126); Anion Gap 15.2 mEq/L (5-15); Aspartate Amino Transferase 18 U/L (14-36); Bilirubin,Total 0.8 mg/dl (0.2-1.3); Blood Urea Nitrogen 11 mg/dl (7-17); Calcium 10.1 mg/dl (8.4-10.2); Carbon Dioxide 24 mmol/L (22.0-30.0); Chloride 103 mmol/L (98-107); Estimated Glomerular Filt Rate 63 ml/min (>60); GFR (African American) 76 ML/MIN (>60); Globulin 3.2 g/dL (1.3-3.2); Glucose 92 mg/dl (74-100); Potassium 4.2 mmoL/L (3.5-5.1); Sodium 138 mmol/L (136-145); Total Protein,Serum 7.8 g/dl (6.3-8.2)
== END 2024-09-04 23:59 | disposition home or self-care (01) ==
LOC: LAB.DROPOF 09-05 12:35
PROVIDERS: PCP Family Medicine; Visit Provider Family Medicine
DX: R42 Dizziness and giddiness (principal)
CPT/HCPCS: 80053; 83036; 84436; 84443; 84479; 85025

== ENCOUNTER 2024-10-21 12:29 | Emergency (ER) | payer MEDICAID, SELFPAY ==
[2024-10-21 13:30] VITALS: BP 122/78; PULSE 78; RESP 18; TEMP 36.7; O2SAT 100; BMI 25.2
--- NOTE | 2024-10-21 14:24 | ED_ITS ---
Discharge Plan Disposition Patient Disposition: Home, Self-Care Prescriptions Prescriptions: No Action sumatriptan succinate 50 mg tablet 50 mg PO ONCE epinephrine 0.3 mg/0.3 mL auto-injector 0.3 ml SQ ONCE PRN (Reason: hypersensitivity reaction) Qty: 2 0RF lamotrigine 100 mg tablet 100 mg PO BID Patient Comments: TAKE 1 TABLET BY MOUTH IN THE MORNING AND 1 TABLET AT BEDTIME Referrals Follow up/Referrals: Yarelis St APRN [Primary Care Provider, Family Practice] - See instructions Activity Restrictions/Add. Instructions Additional Instructions/Restrictions: Follow-up with primary care provider for any further problems or concerns Clinical Impressions Clinical Impression: Hemorrhoid Instructions Patient Instructions: DI for Hemorrhoids Print Language Print Language: Armenian Discharge ED Provider: Ilan Rodríguez General Adult HPI <Khloe Hernadez (ED), ELECTRIC FREIGHT CAR OPERATOR - Last Filed: 10/21/24 15:28> General Chief complaint: Skin/Abscess/Foreign Body Stated complaint: poss infection above buttocks Time Seen by Provider: 10/21/24 14:23 History of Present Illness HPI narrative: 34-year-old female presents to the ED today for complaint of a flesh-colored area above her anus. She states that it is not painful, it is not draining anything. She denies any problems with this she is just worried about what it might be. She looked up on [employer] and just wanted a verification. She has no fevers or chills. No nausea, vomiting or diarrhea. She denies any problems or concerns today. She is drinking plenty of fluids. She does not have any diarrhea or constipation. Related Data Home Medications ?Medication ?Instructions ?Recorded ?Confirmed lamotrigine 100 mg tablet 100 mg PO BID Seizure disord er 10/29/22 10/04/24 sumatriptan succinate 50 mg tablet 50 mg PO ONCE 12/0510/04/24 Previous Rx's ?Medication ?Instructions ?Recorded epinephrine 0.3 mg/0.3 mL 0.3 ml SQ ONCE PRN 10/04/24 injection, auto-injector hypersensitivity reaction #2 ea Allergies Allergy/AdvReac Type Severity Reaction Status Date / Time bee venom protein (honey bee) Allergy Severe Anaphylaxis Verified 10/04/24 12:55 Penicillins Allergy Anaphylaxis Verified 10/04/24 12:55 red dye Allergy Anaphylaxis Verified 10/04/24 12:55 PFS <Khloe Hernadez (ED), ELECTRIC FREIGHT CAR OPERATOR - Last Filed: 10/21/24 15:28> [facility] Disclaimer: The information contained in this section may have been updated after the patient was seen, as this information can be updated by other users. Medical History Breast pain Vaginitis Pyelonephritis Avulsed toenail Vaginal yeast infection Left maxillary sinusitis Bilateral otitis media Left otitis externa COVID-19 Screening examination for STI Vaginal discharge Acute bacterial simple cystitis Rash of face Irregular periods/menstrual cycles Patient desires test negative Cervicitis UTI (urinary tract infection) Family History Other Asthma Cancer Social History Smoking Status: Current every day smoker tobacco type: e-cigarettes and smokeless tobacco alcohol intake: never current occupational status: other Travel in the last 8 weeks?: None Have you lived/traveled outside US in past 30 days?: No Contact w/someone who lives/traveled outside US past 30 days?: No Exposure to someone with infectious disease in past 14 days?: No Do you have a fever (greater than 100.4 F or 38 C)?: No Have you tested positive for COVID-19?: No Exposed to someone with COVID-19 in past 14 days?: No Do you have a sore throat?: No Do you have a cough?: No Do you have any weakness?: No Do you have any diarrhea?: No Are you experiencing any unusual bleeding?: No Do you have any muscle aches/pain?: No Do you have any abdominal pain?: No Are you experiencing loss of taste or smell?: No Other Medical History Have you received the Flu Vaccine for this season: No Have you received the Pneumonia Vaccine: No <Khloe Hernadez (ED), ELECTRIC FREIGHT CAR OPERATOR - Last Filed: 10/21/24 15:28> ROS Obtained: Yes Systems reviewed as appropriate & no additional complaints except as documented Constitutional Constitutional: Reports as per HPI Physical Exam <Khloe Hernadez (ED), ELECTRIC FREIGHT CAR OPERATOR - Last Filed: 10/21/24 15:28> General General appearance: alert Head Head exam: normocephalic Eye Eye exam: Present PERRL ENT ENT exam: Present mucous membranes moist Neck Neck exam: Present trachea midline Respiratory Respiratory exam: Present normal lung sounds bilaterally Cardiovascular Cardiovascular exam: Present regular rate, +S1 and +S2 Extremities Exam Extremities exam: Present full ROM Neurological Exam Neurological exam: Present alert and oriented X3 Skin Skin exam: Present warm and dry Medical Decision Making <Khloe Hernadez (ELPIDIO), ELECTRIC FREIGHT CAR OPERATOR - Last Filed: 10/21/24 15:28> Medical Records Screening: Per USPSTF and CDC recommendations, given the prevalence of disease in our region, it is our hospital?s policy to screen for HIV and viral Hepatitis for all patients aged 18 and over and those with ongoing risk factors. Wm Inquiry Pt receiving controlled substance: No Wm was queried for this patient: No Vital Signs: 10/21/24 13:30 10/21/24 14:59 10/21/24 15:00 Temperature 98.1 F 98.0 F Temperature Source Oral Oral Pulse Rate 77 80 Pulse Rate [Radial] 78 Respiratory Rate 18 16 Blood Pressure 123/90 123/90 Blood Pressure [Right Arm] 122/78 Blood Pressure Mean [Right Arm] 92 Blood Pressure Source Automatic Cuff Blood Pressure Source [Right Arm] Automatic Cuff Blood Pressure Position Sitting Blood Pressure Position [Right Arm] Sitting 02 Sat by Pulse Oximetry 100 100 Oxygen Delivery Method Room Air Room Air Medical Decision Narrative: patient is a 34-year-old female presenting to the emergency department for evaluation of a flesh-colored area above her anus that is not painful or draining anything. Patient is hemodynamically stable and nontoxic-appearing upon arrival, afebrile. Differential diagnosis includes hemorrhoid, among other things. Considered workup but this is not necessary as the area is flesh- colored, not draining anything, not painful and not bothering the patient. This is likely just an overgrowth of rectal tissue or could be a small hemorrhoid that is not inflamed. Patient is safe for discharge home and can follow-up with her PCP. <Ilan Rodríguez MD - Last Filed: 10/21/24 19:22> Vital Signs: 10/21/24 13:30 10/21/24 14:59 10/21/24 15:00 Temperature 98.1 F 98.0 F Temperature Source Oral Oral Pulse Rate 77 80 Pulse Rate [Radial] 78 Respiratory Rate 18 16 Blood Pressure 123/90 123/90 Blood Pressure [Right Arm] 122/78 Blood Pressure Mean [Right Arm] 92 Blood Pressure Source Automatic Cuff Blood Pressure Source [Right Arm] Automatic Cuff Blood Pressure Position Sitting Blood Pressure Position [Right Arm] Sitting 02 Sat by Pulse Oximetry 100 100 Oxygen Delivery Method Room Air Room Air Medical Decision Narrative: patient is a 34-year-old female presenting to the emergency department for evaluation of a flesh-colored area above her anus that is not painful or draining anything. Patient is hemodynamically stable and nontoxic-appearing upon arrival, afebrile. Differential diagnosis includes hemorrhoid, among other things. Considered workup but this is not necessary as the area is flesh-co lored, not draining anything, not painful and not bothering the patient. This is likely just an overgrowth of rectal tissue or could be a small hemorrhoid that is not inflamed. Patient is safe for discharge home and can follow-up with her PCP. I was consulted by the MANSOOR, and we discussed the complexity of the problems being addressed. I approve the treatment and management plan for this patient's care in the emergency department, thus performing a substantive portion of the medical decision making. Ilan Rodríguez MD Critical Care <Khloe Hernadez (ED), ELECTRIC FREIGHT CAR OPERATOR - Last Filed: 10/21/24 15:28> Critical Care Time Critical Care Time: No
[2024-10-21 14:59] VITALS: BP 123/90; PULSE 77; O2SAT 100
[2024-10-21 15:00] VITALS: BP 123/90; PULSE 80; RESP 16; TEMP 36.7; O2SAT 99
== END 2024-10-21 15:00 | disposition home or self-care (01) ==
PROVIDERS: Emergency Provider Student in an Organized Health Care Education/Training Program; PCP Family Medicine
DX: K64.9 Unspecified hemorrhoids (principal)
CPT/HCPCS: 99282

== ENCOUNTER 2024-11-03 21:43 | Emergency (ER) | payer MEDICAID, SELFPAY ==
--- OUTSIDE RECORDS SUMMARY | 2024-11-03 22:08 | XMS_ITS | Referral Summary ---
Author Organization [facility] ([place], [place], [place], [place]) Address [address] [place] [address] Care Team Providers Care Home Health Care Coordinator Name Role Phone StaleyJuliet APRN Primary Care Provider [phone] Shameka Zafar MD Unavailable [phone] Allergies Active Allergy Reactions Criticality Noted Date Comments Penicillins Anaphylaxis High 08/19/2016 Phenytoin Hives High 08/19/2016 Medications EPINEPHrine (EPIPEN) 0.3 mg/0.3 mL AtInIndications :Allergy history, drug Inject 0.3 mLs (0.3 mg total) intramuscularly as needed (For allergic reaction.) She may call for refills if needed.. 0.3 mL 1 12/28/19 23 Active amitriptyline (ELAVIL) 25 MG tabletIndicatio ns:Chronic migraine w/o aura w/o status migrainosus, not intractable Take 1 tablet (25 mg total) by mouth nightly. 90 tablet 1 07/10/19 25 Active lamoTRIgine (LaMICtal) 100 MG tabletIndicatio ns:Convulsive generalized seizure disorder (HCC),Psychomot or epilepsy (HCC) Take 1 tablet (100 mg total) by mouth 2 (two) times daily. 180 tablet 1 07/10/19 25 Active SUMAtriptan (IMITREX) 50 MG tabletIndicatio ns:Chronic migraine w/o aura w/o status migrainosus, not intractable Take 1-2 tablets (50-100 mg total) by mouth daily as needed for migraine. 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 Social History Tobacco Use Types Packs/Day Years Used Date Smoking Tobacco: Never Smokeless Tobacco: Current Tobacco Cessation:Ready to Q uit: Not Asked; Counseling Given: Not Answered Family and Community Support Answer Hemant e Recorded Help with Day to Day Activities Not on file 03/25/2023 Feeling Lonely or Isolated Not on file 03/25 Educational Attainment Answer Date Preston rded Speak language other than Singaporean at home Not on file 03/25/2023 Want help with school or training Not on file 03/25/2023 Substance Use Answer Date Recorded Used prescription meds for non-medical reasons N ot on file 03/25/2023 Used illegal drugs past 12 months Not on file 03/25/2023 Comments Unknown Sex and Gender Information Value Date Recorded Sex Assigned at Not on file Legal Sex Female 9:06 AM CDT Gender Identity Not on file Sexual Orientation Not on file Last Filed Vital Signs Vital Sign Reading Time Taken Comments Blood Pressure 114/77 07/09/2024 4:10 PM EDT Pulse 81 07/09/2024 4:10 PM EDT Temperature - - Respiratory Rate - - Oxygen Saturation - - Inhaled Oxygen Concentration - - Weight 72.8 kg (160 lb 8 oz) 07/09/2024 4:10 PM EDT Height 167.6 cm (5' 6 ) 07/09/2024 4:10 PM EDT Body Mass Index 25.91 07/09/2024 4:10 PM EDT Plan of Treatment Upcoming Encounters Date Type Department Care Team (Late st Contact Info) Description 01/06/2025 3:15 PM EDT Office Visit [facility] Neurology - [address] [place] [id number] Shameka Zafar MD [address] [place] [address] [address] [place] [address] Insurance [facility] [place] [address] Care Teams Home Health Care Coordinator Relationship Specialty Start Date End Date Juliet Staley, OFFICE MACHINES TEACHER [address] [place] [address] PCP - General Nurse Practitioner 06/13/22 Shameka Zafar MD [address] [facility] [address] [place] [address] Neurology 07/10/23
--- OUTSIDE RECORDS SUMMARY | 2024-11-03 22:08 | XMS_ITS | Clinical Summary ---
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 Family History Medical History Relation Name Comments Seizures Mother Relation Name Status Comments Mother Social History Tobacco Use Types Packs/Day Years Used Date Smoking Tobacco: Never Smokeless Tobacco: Current Tobacco Cessation:Ready to Q uit: Not Asked; Counseling Given: Not Answered Family and Community Support Answer Hemant e Recorded Help with Day to Day Activities Not on file 03/25/2023 Feeling Lonely or Isolated Not on file 03/25 Educational Attainment Answer Date Preston rded Speak language other than [place] Islander at home Not on file 03/25/2023 Want [...] Description 01/06/2025 3:15 PM EDT Office Visit [facility] Neurology - [address] [place] [address] Shameka Zafar MD [address] [place] [address] Health Maintenance Due Date Last Done Comments Depression Screening (12+) 2001 Tobacco Cessation Counseling and Screening (12+) 2001 HIV Screening 01/11/2004 Hepatitis C Screening 2007 DTAP/TDAP/TD VACCINES (1 - Tdap) 01/11/2008 Pap Smear 2010 COVID-19 VACCINE (1 - 2023-2 5 season) 2023 Influenza Vaccine (#1) 2024 Pneumococcal Vaccine: 0-49 Years Aged Out No longer eligible based on patient's age to complete this topic Insurance [facility] [place] [address] Care Teams Cement Tile Maker Relationship Specialty Start Date End Date Juliet Staley, PRACTICE ARCHITECT [address] [place] [address] PCP - General Nurse Practitioner 06/13/22 Shameka Zafar MD [address] [place] [address] Neurology 07/10/23
[2024-11-03 22:09] VITALS: BP 135/79; PULSE 95; RESP 16; TEMP 36.8; O2SAT 98; BMI 26.6
--- NOTE | 2024-11-03 22:21 | ED_ITS ---
Discharge Plan Disposition Patient Disposition: Home, Self-Care Prescriptions Prescriptions: No Action sumatriptan succinate 50 mg tablet 50 mg PO ONCE epinephrine 0.3 mg/0.3 mL auto-injector 0.3 ml SQ ONCE PRN (Reason: hypersensitivity reaction) Qty: 2 0RF lamotrigine 100 mg tablet 100 mg PO BID Patient Comments: TAKE 1 TABLET BY MOUTH IN THE MORNING AND 1 TABLET AT BEDTIME Referrals Follow up/Referrals: Yarelis St APRN [Primary Care Provider, Family Practice] - See instructions Activity Restrictions/Add. Instructions Additional Instructions/Restrictions: No evidence of any systemic hypersensitivity reaction more specifically no evidence of anaphylaxis. Return to the emergency department as discussed otherwise you may take Tylenol or ibuprofen and/or Benadryl for localized symptoms. Clinical Impressions Clinical Impression: Local reaction to hymenoptera sting Print Language Print Language: Pakistani Discharge ED Provider: Keo Talbot General Adult HPI General Chief complaint: Allergic Reaction Stated complaint: Stung by wasp R ring finger/ R side of back Time Seen by Provider: 11/03/24 22:08 Mode of Arrival: Ambulatory Source of Information: Patient Description of Symptoms (Recalled from ER Triage Doc. by RN): pt presents to the ED d/t complaints of History of Present Illness HPI narrative: Patient is a 34-year-old female presenting today with a bee sting to the ring finger left hand and also the posterior lateral aspect of her right flank/back. No hives no shortness of breath no mucosal swelling no wheezing etc. She states in the remote past she had a history of anaphylaxis and had EpiPen's when she was much younger and has EpiPen's at home but has not had to administer them. Related Data Home Medications ?Medication ?Instructions ?Recorded ?Confirmed lamotrigine 100 mg tablet 100 mg PO BID Seizure disord er 10/29/22 10/04/24 sumatriptan succinate 50 mg tablet 50 mg PO ONCE 12/0510/04/24 Previous Rx's ?Medication ?Instructions ?Recorded epinephrine 0.3 mg/0.3 mL 0.3 ml SQ ONCE PRN 10/04/24 injection, auto-injector hypersensitivity reaction #2 ea Allergies Allergy/AdvReac Type Severity Reaction Status Date / Time bee venom protein (honey bee) Allergy Severe Anaphylaxis Verified 10/04/24 12:55 Penicillins Allergy Anaphylaxis Verified 10/04/24 12:55 red dye Allergy Anaphylaxis Verified 10/04/24 12:55 [facility] Disclaimer: The information contained in this section may have been updated after the patient was seen, as this information can be updated by other users. Medical History Breast pain Vaginitis Pyelonephritis Avulsed toenail Vaginal yeast infection Left maxillary sinusitis Bilateral otitis media Left otitis externa COVID-19 Screening examination for STI Vaginal discharge Acute bacterial simple cystitis Rash of face Irregular periods/menstrual cycles Patient desires test negative Cervicitis UTI (urinary tract infection) Family History Other Asthma Cancer Social History Smoking Status: Current some day smoker tobacco type: e-cigarettes and smokeless tobacco alcohol intake: never current occupational status: other Travel in the last 8 weeks?: None Have you lived/traveled outside US in past 30 days?: No Contact w/someone who lives/traveled outside US past 30 days?: No Exposure to someone with infectious disease in past 14 days?: No Do you have a fever (greater than 100.4 F or 38 C)?: No Have you tested positive for COVID-19?: No Exposed to someone with COVID-19 in past 14 days?: No Do you have a sore throat?: No Do you have a cough?: No Do you have any weakness?: No Do you have any diarrhea?: No Are you experiencing any unusual bleeding?: No Do you have any muscle aches/pain?: No Do you have any abdominal pain?: No Are you experiencing loss of taste or smell?: No Other Medical History Have you received the Flu Vaccine for this season: No Have you received the Pneumonia Vaccine: No ROS Obtained: Yes All systems reviewed & no additional complaints except as documented Physical Exam General General appearance: alert and in no apparent distress ENT ENT exam: Present normal oropharynx (No mucosal swelling) Respiratory Respiratory exam: Present normal lung sounds bilaterally; Absent respiratory distress Cardiovascular Cardiovascular exam: Present regular rate Neurological Exam Neurological exam: Present alert and oriented X3 Skin Skin exam: Present other (No urticarial rash patient has a very small amount of erythema surrounding the distal tip of her left ring finger also the right flank there is a very small area of erythema no retained stinger in either location) Medical Decision Making Medical Records Screening: Per USPSTF and CDC recommendations, given the prevalence of disease in our region, it is our hospital?s policy to screen for HIV and viral Hepatitis for all patients aged 18 and over and those with ongoing risk factors. Wm Inquiry Pt receiving controlled substance: No Vital Signs: 11/03/24 22:09 Temperature 98.2 F Temperature Source Oral Pulse Rate [Right Radial] 95 H Respiratory Rate 16 Blood Pressure [Right Arm] 135/79 Blood Pressure Mean [Right Arm] 97 Blood Pressure Position [Right Arm] Supine 02 Sat by Pulse Oximetry 98 Orders (Tests/Meds): ED MEDICATIONS Generic Name Dose Route Start Last Admin Trade Name Freq PRN Reason Stop Dose Admin Acetaminophen 1,000 mg 11/03/24 22:18 Acetaminophen 500mg Tab PO 11/03/24 22:19 ONCE ONE Diphenhydramine HCl 25 mg 11/03/24 22:18 Diphenhydramine 25mg Capsule PO 11/03/24 22:19 ONCE ONE Ibuprofen 800 mg 11/03/24 22:18 Ibuprofen 400 Mg Tablet PO 11/03/24 22:19 ONCE ONE Medical Decision Narrative: Very well-appearing 34-year-old with mild localized reactions to hymenoptera/wasp stings. No evidence of any diffuse or systemic allergic reaction specifically no evidence of anaphylaxis. No indication for any emergency management I did give her some Tylenol ibuprofen and Benadryl for localized symptoms and advised that she take this at home. Patient was discharged in stable condition. She does have EpiPen's at home in the event that there is a delayed response. She has been advised to return to the emergency with any worsening of her symptoms. Critical Care Critical Care Time Critical Care Time: No
[2024-11-03] MEDS: ACETAMINOPHEN 500MG TAB 1000 MG PO (22:22)
[2024-11-03] MEDS: IBUPROFEN 400 MG TABLET 800 MG PO (22:22)
[2024-11-03 22:26] VITALS: BP 132/87; PULSE 70; RESP 16; TEMP 36.7; O2SAT 98
[2024-11-03 22:27] VITALS: BP 135/79; PULSE 97; RESP 16; TEMP 36.7; O2SAT 98
== END 2024-11-03 22:28 | disposition home or self-care (01) ==
PROVIDERS: Emergency Provider Student in an Organized Health Care Education/Training Program; PCP Family Medicine
DX: T63.481A Toxic effect of venom of other arthropod, accidental (unintentional), initial encounter (principal)
CPT/HCPCS: 99282; 99283

== ENCOUNTER 2024-12-22 18:02 | Emergency (ER) | payer MEDICAID, SELFPAY ==
[2024-12-22] VITALS (9 sets, daily range): BP systolic 112–133; BP diastolic 68–86; PULSE 73–105; RESP 16–18; TEMP 36.8; O2SAT 96–100; BMI 24.0
[2024-12-22 18:27] LABS: Microscopic, Urine URINE MICROSCOPIC (MICROSCOPIC)
[2024-12-22 18:29] LABS: Color,Urine YELLOW (Yellow); Glucose,Urine (UA) Negative (Negative); Ketones,Urine Negative (Negative); Leukocyte Esterase,Urine Negative (Negative); PH,Urine 6.0 (5.0-8.5); Protein,Urine TRACE (Negative); Specific Gravity, Urine >= 1.030 (1.005-1.030); Urobilinogen,Urine 1.0 EU/dl (0.2)
[2024-12-22 18:31] LABS: Urine Pregnancy, HCG Qual. Negative (Negative)
[2024-12-22 18:34] LABS: Bilirubin,Urine 1+ (Negative)
[2024-12-22 18:38] LABS: RBC,Urine Occasional #/hpf (0-3)
[2024-12-22 18:39] LABS: Bacteria,Urine 2+ /lpf
--- NOTE | 2024-12-22 18:53 | PC.NURSE ---
PT ambulated to the bathroom to provide urine sample. Pt still unable to provide sufficient amount of urine for UA to be completed.
--- NOTE | 2024-12-22 19:21 | ED_ITS ---
<Statement entered by Claudia Peralta DO - 12/24/24 23:52> I was consulted by the MANSOOR, and we discussed the complexity of problems being addressed. I approve the treatment and management plan for this patient's care in the emergency department, thus performing a substantial portion of the medical decision making. Claudia Peralta DO Discharge Plan Disposition Patient Disposition: Home, Self-Care Prescriptions Prescriptions: No Action sumatriptan succinate 50 mg tablet 50 mg PO ONCE epinephrine 0.3 mg/0.3 mL auto-injector 0.3 ml SQ ONCE PRN (Reason: hypersensitivity reaction) Qty: 2 0RF lamotrigine 100 mg tablet 100 mg PO BID Patient Comments: TAKE 1 TABLET BY MOUTH IN THE MORNING AND 1 TABLET AT BEDTIME Referrals Follow up/Referrals: [Other] - See instructions Kate Reddy DO [Staff Physician, [employer]] - See instructions Activity Restrictions/Add. Instructions Additional Instructions/Restrictions: Today you were evaluated in the emergency department. You were prophylactically treated for STDs. Your test should come back tomorrow or the following day. Please call gynecology to make a follow-up appointment. Return to the ED for any worsening of condition. Please refrain from any sexual activity until evaluated further. Clinical Impressions Clinical Impression: Dysuria Instructions Patient Instructions: Facts About Sexually Transmitted Infections Print Language Print Language: Croatian Discharge ED Provider: Claudia Peralta General Adult HPI General Chief complaint: Urogenital-Female Stated complaint: burning, pain when urinating Time Seen by Provider: 12/22/24 18:09 Mode of Arrival: Ambulatory Source of Information: Patient Description of Symptoms (Recalled from ER Triage Doc. by RN): Pt presents for evaluation of burning with urination History of Present Illness HPI narrative: patient is a 34-year-old female PMHx anxiety, depression, migraine, seizures who presents to the ED for complaints of dysuria and vaginal pain. Patient states that she has pain during and after sex. States that she has been having thick discharge for approximately 1 year. Related Data Home Medications ?Medication ?Instructions ?Recorded ?Confirmed lamotrigine 100 mg tablet 100 mg PO BID Seizure disord er 10/29/22 10/04/24 sumatriptan succinate 50 mg tablet 50 mg PO ONCE 12/0510/04/24 Previous Rx's ?Medication ?Instructions ?Recorded epinephrine 0.3 mg/0.3 mL 0.3 ml SQ ONCE PRN 10/04/24 injection, auto-injector hypersensitivity reaction #2 ea Allergies Allergy/AdvReac Type Severity Reaction Status Date / Time bee venom protein (honey bee) Allergy Severe Anaphylaxis Verified 10/04/24 12:55 Penicillins Allergy Anaphylaxis Verified 10/04/24 12:55 red dye Allergy Anaphylaxis Verified 10/04/24 12:55 [facility] Disclaimer: The information contained in this section may have been updated after the patient was seen, as this information can be updated by other users. Medical History Breast pain Vaginitis Pyelonephritis Avulsed toenail Vaginal yeast infection Left maxillary sinusitis Bilateral otitis media Left otitis externa COVID-19 Screening examination for STI Vaginal discharge Acute bacterial simple cystitis Rash of face Irregular periods/menstrual cycles Patient desires test negative Cervicitis UTI (urinary tract infection) Family History Other Asthma Cancer Social History Smoking Status: Current every day smoker tobacco type: e-cigarettes and smokeless tobacco alcohol intake: never current occupational status: other Travel in the last 8 weeks?: None Have you lived/traveled outside [place] in past 30 days?: No Contact w/someone who lives/traveled outside [place] past 30 days?: No Exposure to someone with infectious disease in past 14 days?: No Do you have a fever (greater than 100.4 F or 38 C)?: No Have you tested positive for COVID-19?: No Exposed to someone with COVID-19 in past 14 days?: No Do you have a sore throat?: No Do you have a cough?: No Do you have any weakness?: No Do you have any diarrhea?: No Are you experiencing any unusual bleeding?: No Do you have any muscle aches/pain?: No Do you have any abdominal pain?: No Are you experiencing loss of taste or smell?: No Other Medical History Have you received the Flu Vaccine for this season: No Have you received the Pneumonia Vaccine: No ROS Obtained: Yes Systems reviewed as appropriate & no additional complaints except as documented Physical Exam General General appearance: alert Head Head exam: atraumatic Eye Eye exam: Present PERRL and EOMI ENT ENT exam: Present normal exam Neck Neck exam: Present full ROM Respiratory Respiratory exam: Present normal lung sounds bilaterally Cardiovascular Cardiovascular exam: Present regular rate Speculum exam: Present cervical discharge and other (Bright red cervix, cervical motion tenderness) Neurological Exam Neurological exam: Present alert and oriented X3 Medical Decision Making Medical Records Screening: Per USPSTF and CDC recommendations, given the prevalence of disease in our region, it is our hospital?s policy to screen for HIV and viral Hepatitis for all patients aged 18 and over and those with ongoing risk factors. Wm Inquiry Pt receiving controlled substance: No Vital Signs: 12/22/24 18:13 12/22/24 18:17 12/22/24 19:14 Temperature 98.3 F Temperature Source Oral Pulse Rate 105 H Pulse Rate [Right] 104 H Respiratory Rate 18 Blood Pressure 133/86 112/74 Blood Pressure [Right Arm] 133/86 Blood Pressure Mean 81 Blood Pressure Mean [Right Arm] 101 Blood Pressure Source [Right Arm] Automatic Cuff Blood Pressure Position [Right Arm] Sitting 02 Sat by Pulse Oximetry 96 96 Oxygen Delivery Method Room Air Room Air 12/22/24 19:14 12/22/24 19:15 12/22/24 19:29 Temperature Temperature Source Pulse Rate 83 80 74 Pulse Rate [Right] Respiratory Rate Blood Pressure Blood Pressure [Right Arm] Blood Pressure Mean Blood Pressure Mean [Right Arm] Blood Pressure Source [Right Arm] Blood Pressure Position [Right Arm] 02 Sat by Pulse Oximetry 100 99 100 Oxygen Delivery Method 12/22/24 19:30 12/22/24 19:31 12/22/24 19:45 Temperature Temperature Source Pulse Rate 73 78 Pulse Rate [Right] Respiratory Rate Blood Pressure 119/68 Blood Pressure [Right Arm] Blood Pressure Mean 82 Blood Pressure Mean [Right Arm] Blood Pressure Source [Right Arm] Blood Pressure Position [Right Arm] 02 Sat by Pulse Oximetry 100 100 Oxygen Delivery Method Lab Data Lab Results 12/22/24 18:12: Urine Color Yellow, Urine Appearance Sl cloudy, Urine pH 6.0, Ur Specific [place] >= 1.030, Urine Protein Trace, Urine Glucose (UA) Negative, Urine Ketones Negative, Urine Blood Negative, Urine Nitrate Negative, Urine Bilirubin 1+ A, Urine Urobilinogen 1.0, Ur Leukocyte Esterase Negative, Urine R BC Occasional, Urine WBC 10-20, Ur Squamous Epith Cells 5-10, Urine Bacteria 2+, Urine HCG, Qual Negative Orders (Tests/Meds): ED MEDICATIONS Discontinued Medications Generic Name Dose Route Start Last Admin Trade Name Lori PRN Reason Stop Dose Admin Ceftriaxone Sodium 500 mg 12/22/24 19:25 12/22/24 19:44 Ceftriaxone 500mg Vial IM 12/22/24 19:26 500 mg ONCE ONE Administration Doxycycline Hyclate 100 mg 12/22/24 19:28 12/22/24 19:43 Doxycycline Hycl 100 Mg Tablet PO 12/22/24 19:29 100 mg ONCE ONE Administration Lidocaine HCl 0 ml 12/22/24 19:25 12/22/24 19:44 Lidocaine 1% 5ml Pf Vial IM 12/22/24 19:26 5 ml ONCE ONE Administration ORDERS Category Date Time Status Urinalysis and Microscopic Stat Lab 12/22/24 18:12 Completed Urine Chlam/Gono/Trich ([facility]) Stat Lab 12/22/24 18:55 Received Urine , HCG Qual. Stat Lab 12/22/24 18:12 Completed Urine Culture Stat Micro 12/22/24 18:12 Received Medical Decision Narrative: In summary, patient is a 34-year-old female PMHx anxiety, depression, migraine, seizures who presents to the ED for complaints of dysuria and vaginal pain. Patient states that she has pain during and after sex. States that she has been having thick discharge for approximately 1 year. Patient states she has been treated multiple times for UTIs without relief of symptoms. Patient states she has had unprotected sex with 1 partner over the last 13 years. Denies any additional complaints. Denies fever, chills, body aches, abdominal pain, nausea, vomiting. Differential diagnosis include UTI, pyelonephritis, cervicitis, STI, among others. Upon initial evaluation patient is alert, oriented and cooperative. With RN child adolescent psychiatrist in room, I performed a pelvic exam, thick, light brown discharge noted. Proceeded to do speculum exam which revealed a bright red cervix, patient had cervical motion tenderness. I discussed with patient that I am concerned for cervicitis among STDs. Advised her we will treat with 500 mg of Rocephin and doxycycline. I advised her she will need to follow-up with gynecology for further evaluation. Please refrain from sexual intercourse until evaluated further by Ayad. She has antibiotics at the pharmacy that she will need completed in entirety. Please return to the ED for worsening of condition. Critical Care Critical Care Time Critical Care Time: No
[2024-12-22] MEDS: DOXYCYCLINE HYCL 100 MG TABLET PO (19:43)
[2024-12-22] MEDS: LIDOCAINE 1% 5ML PF VIAL IM (19:44)
== END 2024-12-22 19:53 | disposition home or self-care (01) ==
PROVIDERS: Nurse Practitioner; Emergency Provider Student in an Organized Health Care Education/Training Program; PCP Family Medicine
DX: R30.0 Dysuria (principal); N72 Inflammatory disease of cervix uteri; N89.8 Other specified noninflammatory disorders of vagina; F17.290 Nicotine dependence, other tobacco product, uncomplicated
CPT/HCPCS: 81001; 81025; 87086; 87491; 87591; 87661; 96372; 99283; 99285; J0696; J2003